=== PATIENT | female | born 1950 | race Caucasian/White ===

== ENCOUNTER 2020-01-17 11:57 | Inpatient (IN) | payer MEDICARE ==
[~2020-01-17] VITALS: Ht 160 cm; Wt 81.7 kg
[~2020-01-17 11:57] MED LIST: Antivert25 MG PO; CEPH500 PO; CYCL10 PO; DIPH50 PO; FLUO10 PO; HYDACE5 PO; LISINOPRIL-? DOSE; MELA3 PO; NAPR500 PO; OXYC10ER PO; OXYC30 PO; Omeprazole20 M1 PO; PARO10 PO; SERT100 PO; SULTRIDS PO; Valium5 MG PO; Zithromax250 MG PO; Zofran Odt4 MG SL
[2020-01-17 13:13] LABS: BASOPHILS ABSOLUTE AUTO 0.04 K/mm3 (0.00-0.23); BASOPHILS PERCENT AUTO 0 % (0-2); EOSINOPHILS PERCENT AUTO 1 % (0-6); Hemoglobin 12.9 g/dL (11.5-16.0); IMMATURE GRAN ABSOLUTE AUTO 0.04 K/mm3 (0.00-0.10); IMMATURE GRAN PERCENT AUTO 0 % (0-1); LYMPHOCYTES ABSOLUTE AUTO 1.86 K/mm3 (0.84-5.20); LYMPHOCYTES PERCENT AUTO 14 % (21-46); MONOCYTES ABSOLUTE AUTO 0.61 K/mm3 (0.16-1.47); MONOCYTES PERCENT AUTO 5 % (4-13); Mean Corpuscular HGB 27.5 pg (26.0-34.0); Mean Corpuscular HGB Conc 32.3 g/dL (31.5-36.5); Mean Corpuscular Volume 85 fL (80-100); NEUTROPHILS ABSOLUTE AUTO 10.79 K/mm3 (1.96-9.15); NEUTROPHILS PERCENT AUTO 80 % (41-73); Platelet Count 334 K/mm3 (150-400); Red Blood Cell Count 4.69 M/mm3 (3.80-5.20); White Blood Cell Count 13.44 K/mm3 (4.00-11.30)
[2020-01-17 13:37] LABS: Alanine Aminotransfer (ALT/SGP 15 U/L (12-78); Albumin/Globulin Ratio 0.6 (0.8-1.8); Alk Phos 123 U/L (50-136); Anion Gap 6 mmol/L (6-16); Aspartate Aminotrans (AST/SGOT 17 U/L (12-37); Bilirubin, Total 0.4 mg/dL (0.1-1.0); Blood Urea Nitrogen 16 mg/dL (8-24); Bun/Creatinine Ratio 19.4 (12.0-20.0); CO2, Blood 27 mmol/L (21-32); Calcium, Blood 9.1 mg/dL (8.5-10.1); Chloride, Blood 106 mmol/L (98-108); Creatinine, Blood 0.83 mg/dL (0.40-1.00); Globulin, Blood 5.3 g/dL (2.2-4.0); Glomerular Filtration Rate >60 (60-); Glucose, Blood 109 mg/dL (70-99); Potassium, Blood 2.8 mmol/L (3.5-5.5); Sodium, Blood 139 mmol/L (136-145); Total Protein, Blood 8.3 g/dL (6.4-8.2)
[2020-01-17] MEDS ORDERED: MORP15ER PO (16:51)
[2020-01-17] MEDS ORDERED: MORP30 (16:51)
[2020-01-17] MEDS ORDERED: MORP30 PO (16:52)
[2020-01-17] MEDS ORDERED: ATORVASTATIN CA20 MG PO (17:57)
[2020-01-17] MEDS ORDERED: MORPHINE SULFAT15 M1 PO (18:06)
--- NOTE | 2020-01-18 04:56 | NUR ---
0456 pt having frequent diarrhea. provider called. pcr ordered for c-diff rule out.
[2020-01-18 05:49] LABS: International Normalized Ratio 1.02; Prothrombin Time Results 10.9 Sec (9.7-11.5)
--- NOTE | 2020-01-18 05:50 | NUR ---
PT ARRIVED TO MEDICAL FLOOR FROM ED WITH ABDOMINAL PAIN 02/21 AND WAS TX PER EMAR. PT REPORTED DECREASED PAIN BUT WAS EXPERIENCING MULTIPLE EPISODES OF LOOSE STOOLS WHICH WAS PREVENTING HER FROM SLEEPING. PROVIDER WAS CONTACTED AND STOOL SAMPLE WAS COLLECTED @0545 AND RESULTS PENDING. PT PLACED ON ISOLATION AND IS RESTING AT EASE IN BED WITH CALL LIGHT IN REACH.
--- NOTE | 2020-01-18 06:13 | NUR ---
SUMMARY PT ARRIVED TO FLOOR IN NO DISTRESS. PT REPORTED ABD PAIN AND HAS BEEN TX PER EMAR W/ RELIEF. PT DENIED ANY N/V. PT HAD FREQUENT BOUTS OF DIARRHEA. PT PLACED IN ISOLATION PENDING C-DIFF R/O. PT CURRENTLY RESTING QUIETLY. CALL LIGHT IN REACH.
[2020-01-18 07:43] LABS: Adenovirus F 40/41 Not Detected (NOT DETECT); Astrovirus Not Detected (NOT DETECT); Campylobacter Sp Not Detected (NOT DETECT); Cryptosporidium Not Detected (NOT DETECT); Cyclospora Cayetanensis Not Detected (NOT DETECT); E. Coli O157 Not Detected (NOT DETECT); Entamoeba Histolytica Not Detected (NOT DETECT); Enteroaggregative E. coli-EAEC Not Detected (NOT DETECT); Enteropathogenic E. coli-EPEC Not Detected (NOT DETECT); Enterotoxigenic E. coli-ETEC Not Detected (NOT DETECT); Giardia Lamblia Not Detected (NOT DETECT); Norovirus GI/GII Not Detected (NOT DETECT); Plesiomonas Shigelloides Not Detected (NOT DETECT); Rotavirus A Not Detected (NOT DETECT); Salmonella Sp Not Detected (NOT DETECT); Sapovirus Not Detected (NOT DETECT); Shiga Toxin-prod E. coli-STEC Not Detected (NOT DETECT); Shigella/Enteroin E. coli-EIEC Not Detected (NOT DETECT); Vibrio Cholerae Not Detected (NOT DETECT); Vibrio Sp Not Detected (NOT DETECT); Yersinia Enterocolitica Not Detected (NOT DETECT)
--- NOTE | 2020-01-18 08:13 | NUR ---
CALLED DR FULLER- PT STILL HAVING FREQUENT STOOLS. C-DIFF PANEL NEGATIVE. REQUESTED IMMODIUM FOR THE PT.
[2020-01-18 08:40] LABS: Anion Gap 5 mmol/L (6-16); Blood Urea Nitrogen 15 mg/dL (8-24); Bun/Creatinine Ratio 19.3 (12.0-20.0); CO2, Blood 26 mmol/L (21-32); Calcium, Blood 8.2 mg/dL (8.5-10.1); Chloride, Blood 109 mmol/L (98-108); Creatinine, Blood 0.78 mg/dL (0.40-1.00); Glomerular Filtration Rate >60 (60-); Glucose, Blood 96 mg/dL (70-99); Potassium, Blood 3.1 mmol/L (3.5-5.5); Sodium, Blood 140 mmol/L (136-145)
--- NOTE | 2020-01-18 13:32 | NUR ---
RECIEVED A CALL FROM DR CONNER, REQUESTED GI BE CONSULTED BEFORE HE SEES THE PT. CALLED DR FULLER- UPDATED HIM. RECIEVED ORDER FOR RN TO NOTIFY GI CONSULT. CALLED DR MOCTEZUMA OFFICE AND WAS TOLD TO CALL HIS CELL. CALLED HIS CELL AND LEFT CONSULT REQUEST WITH HIS PROCEDURE CLUB LOUNGE ATTENDANT (HE IS CURRENTLY IN A PROCEDURE).
--- NOTE | 2020-01-18 14:19 | NUR ---
Initial spiritual care note: Apryl admits to me that she is [place] and had trouble understanding what her physicians have told her. She also says she is fearful. In 2013, she lost 2 of her children and her within 9 months. She is still actively grieving these losses. She lives with her dtr and grandchildren. I provided theraputic listening and gentle breavement cemetery counselor. Prayer for a clear path and God's radha. Apryl has low medical literacy, therefore a calm, understandable explaination of what she is facing will go a long way to allieviate some of her fear. She may also benefit from [facility] allowing her dtr to visit. Conferenced with palliative care RN. Plate Stacker Hand services will remain available.
--- NOTE | 2020-01-18 19:40 | NUR ---
SHIFT SUMMARY- PT ALERT AND ORIENTED, SPOKE TO DR CONNER TODAY, HE REQUESTED GI. DR MOCTEZUMA CAME TO SEE THE PT AND THE PLAN IS FOR HER TO DO BOWEL PREP THIS EVENING AND AGAIN TOMORROW MORNING. DR MOCTEZUMA WANTS TO BE CALLED WHEN THE PT COMPLETES THE SECOND DOSE OF BOWEL PREP. PASSED THE PHONE NUMBER ON TO THE NIGHT GABE MURILLO IN BEDSIDE REPORT. PT WAS MEDICATED FOR PAIN THREE TIMES EACH TIME WAS AROUND MEAL TIME. PT CURRENTLY ON A CLEAR LIQUID DIET. PT INDEPENDENT TO THE BATHROOM, BUT D/T BOWEL PREP SHE WAS ASKED TO USE THE BSC AND CALL FOR STAFF TO EMPTY IT EACH TIME SHE GOES. NIGHT RN AWARE.
--- NOTE | 2020-01-19 04:16 | NUR ---
SUMMARY PT HAD 1900 BOWEL PREP. PT HAS BEEN LIMITED TO WATER AND ICE CHIPS. PT DISCOMFORT BEEN TX PER EMAR. WILL CONTINUE BOWEL PREP IN AM. PT HAS BEEN ABLE TO REST SOME. PT IS ANXIOUS AND EAGER TO GO HOME. CALL LIGHT IN REACH.
[2020-01-19 05:25] LABS: Anion Gap 5 mmol/L (6-16); Blood Urea Nitrogen 8 mg/dL (8-24); Bun/Creatinine Ratio 11.6 (12.0-20.0); CO2, Blood 25 mmol/L (21-32); Chloride, Blood 110 mmol/L (98-108); Creatinine, Blood 0.69 mg/dL (0.40-1.00); Glomerular Filtration Rate >60 (60-); Glucose, Blood 98 mg/dL (70-99); Potassium, Blood 3.3 mmol/L (3.5-5.5); Sodium, Blood 140 mmol/L (136-145)
--- NOTE | 2020-01-19 13:26 | NUR ---
01/19/20 1326 Nikki Valladares History, Chart, Medications and Allergies reviewed before start of procedure.Patient confirms NPO status and agrees with scheduled surgery.LUNGS CLEAR T/O TO AUSCULTATION.Patient states colon prep results clear.MONITOR INTACT WITH CONTINUOUS PULSE OXIMETRY AND INTERMITTENT BP.3-LEAD EKG REVIEWED WITH PHYSICIAN PRIOR TO START OF PROCEDURE.O2 VIA N/C INTACT THROUGHOUT SEDATION/PROCEDURE.
--- NOTE | 2020-01-19 14:43 | NUR ---
PT ARRIVED BACK TO THE UNIT AT 1430. SHE REQUESTED FOOD. PROVIDED A DRINK AND PUDDING PT TOLERATED WELL. REPORT RECIEVED FROM SURGICAL NURSE
[2020-01-19] MEDS ORDERED: MORP15ER PO (15:49)
[2020-01-19] MEDS ORDERED: LOPE2C PO (16:00)
[2020-01-19] MEDS ORDERED: ONDA4ODT PO (16:01)
[2020-01-19] MEDS ORDERED: MIRALAX17 GM PO (16:01)
--- NOTE | 2020-01-19 17:12 | NUR ---
PT DISCHARGED FROM THE UNIT AT 1700, SHE LEFT VIA WHEEL CHAIR, DAUGHTER TO DRIVE HOME. DISCHARGE INSTRUCTIONS REVIEWED. IVS REMOVED. MEDICATIONS FAXED TO [facility]. PT INSTRUCTED ON FOLLOW UP APTS TO BOTH PRIMARY CARE AND ONCOLOGIST.
== END 2020-01-19 17:05 | disposition home or self-care (01) | DRG 375 ==
LOC: ER 11:57 → MEDS 11:58
PROVIDERS: Family Medicine; Internal Medicine; Internal Medicine Gastroenterology; Nurse Practitioner Acute Care; Physician Assistant; ADMIT Internal Medicine
PROC: 0DBK8ZX Excision of Ascending Colon, Via Natural or Artificial Opening Endoscopic, Diagnostic (ICD-10-PCS; principal; 2020-01-19 11:00)
PROC: 0DBL8ZX Excision of Transverse Colon, Via Natural or Artificial Opening Endoscopic, Diagnostic (ICD-10-PCS; 2020-01-19 11:00)
DX: C18.2 Malignant neoplasm of ascending colon (principal); C78.7 Secondary malignant neoplasm of liver and intrahepatic bile duct; C77.2 Secondary and unspecified malignant neoplasm of intra-abdominal lymph nodes; E86.0 Dehydration; M19.90 Unspecified osteoarthritis, unspecified site; G89.4 Chronic pain syndrome; F11.90 Opioid use, unspecified, uncomplicated; E87.6 Hypokalemia; F32.9 Major depressive disorder, single episode, unspecified; R19.7 Diarrhea, unspecified; Z87.891 Personal history of nicotine dependence; I10 Essential (primary) hypertension; K63.5 Polyp of colon
CPT/HCPCS: 0097U; 36415; 74176; 80048; 80053; 83690; 83735; 85025; 85610; 88305; 96365; 96368; 96372; 96375; 96376; 99285-25; A9270; G0378; J1170; J1650; J2405; J2704; J3475; J3480; J7030; J7120

== ENCOUNTER 2020-02-04 08:44 | Day surgery (SDC) | payer MEDICARE ==
[~2020-02-04] VITALS: Ht 157.5 cm; Wt 81.3 kg
[~2020-02-04 08:44] MED LIST changes: +ATORVASTATIN CA20 MG PO; +LOPE2C PO; +MIRALAX17 GM PO; +MORP15ER PO; +MORP30; +MORP30 PO; +MORPHINE SULFAT15 M1 PO; +ONDA4ODT PO
--- NOTE | 2020-02-04 09:15 | NUR ---
Surgical site prepped with 2% Chlorhexidine cloth wipe. History, Chart, Medications and Allergies reviewed before start of procedure.Lungs clear T/O to Auscultation. Patient confirms NPO status and agrees with scheduled surgery. Pre-Op teaching done. Pt verbalizes understanding. Patient States Post-Procedure ride home has been arranged.
--- NOTE | 2020-02-04 13:58 | NUR ---
Patient up to Ambulate independently. Gait steady. Discharge instructions reviewed with patient. Patient verbalizes understanding. Copy given to patient to take home. Discharged via wheelchair to private car for ride home.
== END 2020-02-04 22:37 | disposition home or self-care (01) ==
LOC: ORSCMMR 08:44 → ORD 10:00 → ORSCMMR 10:00
PROVIDERS: Surgery
PROC: B5181ZA Fluoroscopy of Superior Vena Cava using Low Osmolar Contrast, Guidance (ICD-10-PCS; principal; 2020-02-04 10:00)
PROC: 02HV33Z Insertion of Infusion Device into Superior Vena Cava, Percutaneous Approach (ICD-10-PCS; principal; 2020-02-04 10:00)
DX: C18.2 Malignant neoplasm of ascending colon (principal); Z87.891 Personal history of nicotine dependence; E78.00 Pure hypercholesterolemia, unspecified; Z79.899 Other long term (current) drug therapy
CPT/HCPCS: 77001; A9270-GY; C1788; J0690; J1642; J2250; J2704; J3010; J7120

== ENCOUNTER → 2020-05-29 | Outpatient (CLI) | payer OTHER ==
[~2020-05-29] MED LIST changes: +Dyazide 37.5/251 EA PO; +METO10 PO
== END | disposition home or self-care (01) ==
LOC: LAB EV 17:56 → LAB SHORT 17:56
DX: R05 Cough (principal); Z20.828 Contact with and (suspected) exposure to other viral communicable diseases
CPT/HCPCS: U0003

== ENCOUNTER → 2020-05-29 | Outpatient (CLI) | payer OTHER ==
[2020-05-29 18:23] LABS: BASOPHILS ABSOLUTE AUTO 0.03 K/mm3 (0.00-0.23); BASOPHILS PERCENT AUTO 1 % (0-2); EOSINOPHILS ABSOLUTE AUTO 0.16 K/mm3 (0.00-0.68); EOSINOPHILS PERCENT AUTO 3 % (0-6); Hematocrit 39.1 % (33.0-51.0); Hemoglobin 13.3 g/dL (11.5-16.0); IMMATURE GRAN ABSOLUTE AUTO 0.01 K/mm3 (0.00-0.10); IMMATURE GRAN PERCENT AUTO 0 % (0-1); LYMPHOCYTES ABSOLUTE AUTO 2.21 K/mm3 (0.84-5.20); LYMPHOCYTES PERCENT AUTO 38 % (21-46); MONOCYTES ABSOLUTE AUTO 0.74 K/mm3 (0.16-1.47); MONOCYTES PERCENT AUTO 13 % (4-13); Mean Corpuscular HGB 30.1 pg (26.0-34.0); Mean Corpuscular Volume 89 fL (80-100); Mean Platelet Volume 9.9 fL (9.1-12.4); NEUTROPHILS ABSOLUTE AUTO 2.63 K/mm3 (1.96-9.15); NEUTROPHILS PERCENT AUTO 46 % (41-73); Platelet Count 186 K/mm3 (150-400); RDW Coefficient Variation 17.3 % (11.7-14.2); RDW Standard Deviation 54.9 fL (35.1-46.3); Red Blood Cell Count 4.42 M/mm3 (3.80-5.20); White Blood Cell Count 5.78 K/mm3 (4.00-11.30)
[2020-05-29 18:28] LABS: Anion Gap 6 mmol/L (6-16); Blood Urea Nitrogen 12 mg/dL (8-24); Bun/Creatinine Ratio 16.2 (12.0-20.0); CO2, Blood 30 mmol/L (21-32); Calcium, Blood 9.1 mg/dL (8.5-10.1); Chloride, Blood 102 mmol/L (98-108); Creatinine, Blood 0.74 mg/dL (0.40-1.00); Glomerular Filtration Rate >60 (60-); Glucose, Blood 88 mg/dL (70-99); Potassium, Blood 3.1 mmol/L (3.5-5.5); Sodium, Blood 138 mmol/L (136-145)
== END | disposition home or self-care (01) ==
LOC: LAB SHORT 18:15 → LAB EV 18:15
PROVIDERS: Physician Assistant Surgical
DX: J18.9 Pneumonia, unspecified organism (principal)
CPT/HCPCS: 80048; 85025

== ENCOUNTER 2020-08-26 14:22 | Inpatient (IN) | payer MEDICARE ==
[~2020-08-26] VITALS: Ht 157.5 cm; Wt 84.5 kg
[~2020-08-26 14:22] MED LIST changes: -Omeprazole20 M1 PO; +Prilosec Otc20 MG PO
[2020-08-26 14:50] LABS: BASOPHILS ABSOLUTE AUTO 0.05 K/mm3 (0.00-0.23); BASOPHILS PERCENT AUTO 0 % (0-2); EOSINOPHILS PERCENT AUTO 0 % (0-6); Hematocrit 50.5 % (33.0-51.0); Hemoglobin 16.6 g/dL (11.5-16.0); IMMATURE GRAN ABSOLUTE AUTO 0.07 K/mm3 (0.00-0.10); IMMATURE GRAN PERCENT AUTO 0 % (0-1); LYMPHOCYTES ABSOLUTE AUTO 0.63 K/mm3 (0.84-5.20); LYMPHOCYTES PERCENT AUTO 3 % (21-46); MONOCYTES ABSOLUTE AUTO 0.84 K/mm3 (0.16-1.47); MONOCYTES PERCENT AUTO 4 % (4-13); Mean Corpuscular HGB 31.6 pg (26.0-34.0); Mean Corpuscular HGB Conc 32.9 g/dL (31.5-36.5); Mean Corpuscular Volume 96 fL (80-100); Mean Platelet Volume 10.1 fL (9.1-12.4); NEUTROPHILS ABSOLUTE AUTO 18.06 K/mm3 (1.96-9.15); NEUTROPHILS PERCENT AUTO 92 % (41-73); Platelet Count 187 K/mm3 (150-400); RDW Coefficient Variation 13.8 % (11.7-14.2); RDW Standard Deviation 49.3 fL (35.1-46.3); Red Blood Cell Count 5.26 M/mm3 (3.80-5.20); White Blood Cell Count 19.65 K/mm3 (4.00-11.30)
[2020-08-26 15:12] LABS: Alanine Aminotransfer (ALT/SGP 31 U/L (12-78); Albumin, Blood 3.7 g/dL (3.4-5.0); Albumin/Globulin Ratio 0.7 (0.8-1.8); Alk Phos 148 U/L (50-136); Anion Gap 10 mmol/L (6-16); Aspartate Aminotrans (AST/SGOT 29 U/L (12-37); Blood Urea Nitrogen 16 mg/dL (8-24); Bun/Creatinine Ratio 21.4 (12.0-20.0); CO2, Blood 25 mmol/L (21-32); Calcium, Blood 9.7 mg/dL (8.5-10.1); Chloride, Blood 102 mmol/L (98-108); Creatinine, Blood 0.75 mg/dL (0.40-1.00); Globulin, Blood 5.4 g/dL (2.2-4.0); Glomerular Filtration Rate >60 (60-); Glucose, Blood 256 mg/dL (70-99); Potassium, Blood 3.7 mmol/L (3.5-5.5); Sodium, Blood 137 mmol/L (136-145); Total Protein, Blood 9.1 g/dL (6.4-8.2)
[2020-08-26] MEDS ORDERED: CYCL10 PO (20:55)
[2020-08-26] MEDS ORDERED: AMLO10 PO (20:56)
[2020-08-26 23:05] LABS: Influenza A, PCR Negative (NEGATIVE); Influenza B, PCR Negative (NEGATIVE); Resp Syncytial Virus, PCR Negative (NEGATIVE); SARS-Cov-2 (COVID-19) PCR, MMC Negative (NEGATIVE)
--- NOTE | 2020-08-26 23:54 | NUR ---
08/26/20 0884 Willis Roque PT RECIEVED ANTIBIOTICS PRIOR TO ARRIVAL TO OR DR TANG CONFIRMED
--- NOTE | 2020-08-27 01:46 | NUR ---
PATIENT ARRIVED TO ICU AT 0135 FROM OR FOR POST OP AND STAY ICU STATUS TONIGHT. PATIENT HAS ORAL AIRWAY IN PLACE WITH NRB MASK IN PLACE RESP WITH AUDIBLE WHEEZES BIOX 99%. DRESSING TO MID ABD WITH GASTON WOUND VAC IN PLACE. DOCTOR TANG UNABLE TO LOCATE GRANDDAUGHTER AT THIS TIME. DOCTOR MARTINEZ FOR PACU.
[2020-08-27 01:53] LABS: Hematocrit 46.3 % (33.0-51.0); Hemoglobin 15.2 g/dL (11.5-16.0); Mean Corpuscular HGB Conc 32.8 g/dL (31.5-36.5); Mean Corpuscular Volume 98 fL (80-100); Mean Platelet Volume 10.5 fL (9.1-12.4); Platelet Count 148 K/mm3 (150-400); RDW Coefficient Variation 13.7 % (11.7-14.2); RDW Standard Deviation 50.3 fL (35.1-46.3); Red Blood Cell Count 4.75 M/mm3 (3.80-5.20)
[2020-08-27 02:08] LABS: Anion Gap 9 mmol/L (6-16); Blood Urea Nitrogen 21 mg/dL (8-24); Bun/Creatinine Ratio 23.9 (12.0-20.0); CO2, Blood 24 mmol/L (21-32); Calcium, Blood 8.6 mg/dL (8.5-10.1); Chloride, Blood 103 mmol/L (98-108); Creatinine, Blood 0.88 mg/dL (0.40-1.00); Glomerular Filtration Rate >60 (60-); Glucose, Blood 162 mg/dL (70-99); Potassium, Blood 3.8 mmol/L (3.5-5.5); Sodium, Blood 136 mmol/L (136-145)
[2020-08-27 02:43] LABS: Source, Urine Voided
[2020-08-27 02:45] LABS: Bilirubin, Urine Neg (Neg); Blood, Urine 3+ (Neg); Glucose Qualitative, Urine 2+ (Neg); Ketones, Urine Neg (Neg); Leukocyte Esterase, Urine 1+ (Neg); Nitrite, Urine Neg (Neg); Protein, Urine 3+ (Neg); Specific Gravity, Urine 1.005 (1.003-1.022); Urobilinogen, Urine NORM (Normal)
[2020-08-27 02:50] LABS: Appearance, Urine Clear (Clear); Color, Urine Amber (P-Yellow)
[2020-08-27 02:51] LABS: Amorphous Light (0-Heavy); Bacteria Few /hpf; Hyaline Casts 0-2 /lpf (0-2); Squamous Epithelial Cells Not Seen /hpf (Few)
--- NOTE | 2020-08-27 06:00 | NUR ---
SUMMARY PATIENT IN ICU POST COLECTOMY. GASTON DRAIN TO MID ABD WITH SMALL AMT OF RED DRAINAGE TO MIDDLE OF DRAIN DRESSING REMANS INTACT WITH GOOD SUCTION. PATIENT MORE AWAKE ABLE TO ASSIST WITH REPOSITIONING IN BED WHILE HOLDING PILLOW TO ABD FOR SUPPORT. OXYGEN AT 2L/NC DUE TO BIOX 89-90% WHILE SLEEPING. AD OPERATIONS INTERN FENTANYL NOT STARTED DUE TO PATIENT BEING LETHARGIC AND VERBALIZING GOOD PAIN CONTROL AT THIS TIME. DILAUDID IV AVAILABLE IF NEEDED. WILL CONTINUE TO MONITOR FOR PAIN.
--- NOTE | 2020-08-27 11:15 | NUR ---
AM NOTE... ASSUMED CARE OF PT APROX 0700. PT IS A&Ox4 AND SLEEPY. PT IS S/P PARTIAL COLECTOMY. PT IS NPO POST PROCEDURE. PT HAS LR RUNNING AT 150MLS/HR. PT HAS PICCO DRAIN TO THE MIDLINE OF HER ABD, THERE IS A SMALL AMOUNT OF DRY BLOOD TO THE CENTER OF THE DRESSING THAT HAS NOT CHANGED SINCE ARRIVAL ON THE UNIT PER NOC SHIFT RN. BT ARE PRESENT AND HYPOACTIVE THE RIGHT SIDE OF HER ABD IS FRIM AND VERY TENDER TO PALP, THE LEFT SIDE IS SOFT AND NOT FIRM THE RIGHT. NO EDEMA IS NOTED ON ASSESSMENT. PT IS ON RA WITH O2 SATS>90% L/S CLEAR T/O DIM IN THE BASES. PT IS C/O OF 8/10 ABD PAIN SHE HAS BEEN MEDICATED PER EMAR, FENTANYL NAVY MATERIAL INSPECTOR WAS SET UP AND STARTED WITH MARK BERNAL. PT IS TO TRANSFER TO SURGICAL FLOOR, REPORT TO BE CALLED AND PT WILL BE TRANSFERRED. WILL CONTINUE TO MONITOR UNTIL TRANSFER.
--- NOTE | 2020-08-27 11:30 | NUR ---
PT UPDATE... PT'S SYSTOLIC BP HAS BEEN IN THE 160'S-170'S, DR. MAC AWARE. CALLED TO GIVE REPORT TO SURGICAL NURSE, WAITING FOR A CALL BACK. WILL CONTINUE TO MONITOR.
--- NOTE | 2020-08-27 13:30 | NUR ---
1200- recvd report from SPORTS LEADERSHIP INSTRUCTOR Tanisha; arranged transport to unit for 1315 per ICU scheduling needs 1325-pt transferred to room, a/o x 4, pleasant, rates pain at 6/10, instructed to utilize FLOOR ATTENDANT which pt did. VSS, pt oriented to room/bed/call light, provided with mouth moisteners.
--- NOTE | 2020-08-27 15:40 | NUR ---
dr ram rounding on pt
--- NOTE | 2020-08-27 17:30 | NUR ---
pt's daughter visiting; this rn updated daughter on pt's condition and answers questions.
--- NOTE | 2020-08-27 17:57 | NUR ---
Spiritual care note: Andreia was very sleepy, but she nodded 'yes' to prayer. Provided prayer for healing, and I will remain available.
--- NOTE | 2020-08-27 19:06 | NUR ---
shift summary: pt vs stable. telemetry shows sinus tachycardia. pt provided with IV lopressor per mar due to hr of 124 and SBP 180. VS taken following administraion showing hr 100 and SBP 130-140's. pt tolerating clear liquid. BT hypoactive. pt provided with analgesia per mar of sublimaze LOT PORTER and additional IV push of Dilaudid. SPo2 >95% on room air. GASTON midline dressing intact, shows dried blood shadowing, no new blood.
--- NOTE | 2020-08-28 03:19 | NUR ---
SHIFT SUMMARY: POD 2 S/P RIGHT COLECTOMY PATIENT IS ALERT AND ORIENTED X3 WHILE AWAKE. HE CAN BECOME ANXIOUS/IMPULSIVE AND CONFUSED AT TIMES. BED ALARM IS ON. HOWEVER, PATIENT HAS BEEN ASLEEP MOST OF THE NIGHT BUT EASILY AROUSABLE. VITALS ARE WNL AND SHE IS ON RA. PAIN IS CONTROLLED WITH HER IV FENTANYL CYBERATHLETE PUMP AND PO OXYCOTIN. PATIENT IS ON TELE AND WAS SINUS TACH PATIENT IS JOSE ARMANDO PO CLEAR LIQUID. BOWELS ARE HYPOACTIVE. OXYGEN SATS ARE >90%. GASTON HAS SMALL AMOUNT OF DRIED BLOOD ON IT BUT FOAM IS COMPRESSED. CALL LIGHT WITHIN REACH. THE PLAN IS TO KEEP PAIN UNDER CONTROL AND KEEP RECIEVING ABX/FLUIDS.
[2020-08-28 04:26] LABS: BASOPHILS ABSOLUTE AUTO 0.07 K/mm3 (0.00-0.23); BASOPHILS PERCENT AUTO 0 % (0-2); Hemoglobin 9.2 g/dL (11.5-16.0); LYMPHOCYTES PERCENT AUTO 8 % (21-46); MONOCYTES ABSOLUTE AUTO 1.57 K/mm3 (0.16-1.47); MONOCYTES PERCENT AUTO 5 % (4-13); Mean Corpuscular HGB 32.2 pg (26.0-34.0); Mean Corpuscular HGB Conc 32.9 g/dL (31.5-36.5); Mean Corpuscular Volume 98 fL (80-100); Mean Platelet Volume 10.8 fL (9.1-12.4); Platelet Count 209 K/mm3 (150-400); RDW Coefficient Variation 14.2 % (11.7-14.2); RDW Standard Deviation 51.1 fL (35.1-46.3); Red Blood Cell Count 2.86 M/mm3 (3.80-5.20); White Blood Cell Count 29.04 K/mm3 (4.00-11.30)
[2020-08-28 04:29] LABS: EOSINOPHILS PERCENT AUTO 0 % (0-6); IMMATURE GRAN ABSOLUTE AUTO 0.31 K/mm3 (0.00-0.10); IMMATURE GRAN PERCENT AUTO 1 % (0-1); NEUTROPHILS ABSOLUTE AUTO 24.79 K/mm3 (1.96-9.15); NEUTROPHILS PERCENT AUTO 85 % (41-73)
[2020-08-28 04:55] LABS: Albumin/Globulin Ratio 0.5 (0.8-1.8); Bilirubin, Total 0.8 mg/dL (0.1-1.0); Bun/Creatinine Ratio 26.4 (12.0-20.0); Calcium, Blood 8.1 mg/dL (8.5-10.1); Creatinine, Blood 1.06 mg/dL (0.40-1.00); Globulin, Blood 3.7 g/dL (2.2-4.0); Potassium, Blood 4.1 mmol/L (3.5-5.5)
[2020-08-28 04:56] LABS: Total Protein, Blood 5.7 g/dL (6.4-8.2)
--- NOTE | 2020-08-28 05:06 | NUR ---
CALLED DR. FULLER FOR A CRITICAL LAB VALUE OF LACTIC ACID AT 2.6. DR. FULLER STATED THAT HER FLUID RATE SHOULD BE INCREASED TO 135 CC/HR. THEN CARDIAC CARE UNIT NURSE REPORTED TO ME WHILE ON THE PHONE WITH DR. FULLER THAT SHE HAS SOME BRIGHT RED BLOOD THAT CAME OUT ONTO FINNEGAN AND BEDPAN. THIS NURSE ALSO REPORTED TO DR. FULLER THAT HER HEMOGLOBIN HAS DECREASED FROM [address] FULLER THEN STATED THAT HE WOULD BE ORDERING BLOOD FOR THE PATIENT AND THAT SHE SHOULD BE TRANSFERRED TO PCU. CHARGEN NURSE BLACK WAS INFORMED OF THE SITUATION. NURSE BLACK REPORTED TO NURSING SUPERVISIOR ABOUT TRANSFER. NURSING SUPERVISIOR ROCKY IS RETRIEVING A BED FOR THE PATIENT. PATIENT HAS CALL LIGHT WITHIN REACH.
--- NOTE | 2020-08-28 05:56 | NUR ---
GAVE REPORT TO ICU NURSE ARIANA AT 0530 TODAY 08/28/2020. PATIENT HAS BEEN ALERT AND ORIENTATED X4 THIS MORNING. BP VITALS HAVE BEEN STEADILY DECREASING. FLUIDS HAVE BEEN INCREASED TO 135 CC/HR. HER HR HAS BEEN STEADILY BETWEEN 105-120 ACCORDING TO PCU RESIDENTIAL LIFE DIRECTOR GIL. PAIN IS CONTROLLED WITH FENTANYL MOLDER FEEDER PUMP. HER KERN WAS PATENT WITH GEETA COLOR URINE IN KERN BAG. NO KINKS IN TUBING. PATIENT IS PCU STATUS BUT PCU HAD NO BEDS AVAILABLE SO SHE WAS TRANSFERRED TO ICU. SHE IS ON BEDREST. STOPPED GIVING HER PO CLEAR LIQUIDS SINCE THE CALL WITH DR. FULLER AT 0450 TODAY. SEE PREVIOUS NOTE FOR MORE DETAILS ON WHY SHE WAS TRANSFERRED. ITEMS IN ROOM HAVE BEEN COLLECTED AND PLACED ON HER BED. SHE WAS TRANSFERRED TO ICU AT 0545 IN BED. IV POLE WITH MOLDER FEEDER AND FLUIDS WENT WITH THE BED.
--- NOTE | 2020-08-28 06:38 | NUR ---
ARRIVED TO ICU 2 PT ARRIVED TO ICU AT 0541. PT IS ALERT AND ORIENTED BUT DROWSY. PT PALE AND COOL TO TOUCH. O2 SAT ON RA >90%. BP 103/71. HR 110-120. AFIBRILE. KERN IN PLACE AND DRAINING TO GRAVITY. FENTANYL ELECTRONIC EQUIPMENT SET UP OPERATOR INFUSING. ORDER FOR 1 UNIT PRB STARTED. PT LUNG SOUNDS CLEAR. ABD BANDAGE SHOWS SIGNS OF DRIED BLOOD, PREVIOUS RN SAID THIS WAS NOT NEW. WILL CONT TO MONITOR UNTIL AM RN AVAILABLE FOR REPORT.
[2020-08-28 10:55] LABS: Hematocrit 29.6 % (33.0-51.0)
--- NOTE | 2020-08-28 10:58 | NUR ---
ASSUMED CARE OF PT, REPORT RCV'D FROM ARIANA Arevalo RN. PT ALERT AND ORIENTED SITTING UP IN BED RECEIVING 1U PRBC. PT REPORTS ABDOMINAL PAIN THAT WORSENS WITH MOVEMENT. PT STATES PAIN IS MUCH BETTER FROM THIS MORNING. FENTANYL FISHING TOOL TECHNICIAN OIL WELL INFUSING INTO LARA PG AT 15 MCG CONTINUOUS DOSE WITH 10 MCG FISHING TOOL TECHNICIAN OIL WELL DOSE. PT RECEIVING 500 ML NS BOLUS FOLLOWED BY 150 ML NS MAINTENANCE FLUIDS PER DR. MAC. PT'S VSS AT THIS TIME AND PT DENIES NEEDS. BED IN LOW/LOCKED POSITION, CALL LIGHT IN HAND. SEE FULL SHIFT ASSESSMENT.
--- NOTE | 2020-08-28 15:44 | NUR ---
PT TO BE TRANSFERRED TO PCU 13. CALLED DAUGHTER SALIMA AND UPDATED WITH NEW ROOM.
--- NOTE | 2020-08-28 16:29 | NUR ---
ASSUMED CARE FROM ICU PT ARRIVED TO PCU FROM ICU AT APPROXIMATELY 1600. PT WAS PAINFUL AT ARRIVAL BUT STATES THAT AFTER USING HER GRAPE CRUSHER WITH FENTNYL HER PAIN BECAME TOLERABLE. VS STABLE, LUNGS BUL CLEAR, RML CLEAR, BLL DIM. PT ARRIVED ON 2L OF O2 VIA NC. GASTON DRESSING IN PLACE; MINOR AMOUNTS OF DRIED RED BLOOD AT THE CENTER OF THE DRESSING. PT HAS NS RUNNING AT 150ML/HR AND REPORTS DECREASED APPETITE. PT RESTING AT THIS TIME
--- NOTE | 2020-08-28 18:07 | NUR ---
SHIFT SUMMARY PT ARRIVED TO PCU THIS AFTERNOON. PT HAS BEEN RESTING IN HER ROOM SINCE ARRIVAL. VS STABLE. PAIN MANAGED WITH NDT INSPECTOR. PT DID REPORT NAUSEA AFTER ARRIVAL AND RECEIVED ZOFRAN. PT HAS SPENT HER EVENING VISITING WITH HER GRANDDAUGHTER. PT IS NOW RESTING IN HER ROOM WATCHING TV
--- NOTE | 2020-08-29 06:08 | NUR ---
SHIFT SUMMARY PATIENT ALERT AND ORIENTED. REPOSITIONED Q2 HOURS. PATIENT SLEPT MOST THE NIGHT. PT ON DOT NET DEVELOPER PUMP, PT STATED SHE WAS NOT FEELING LIKE SHE NEEDED TO PRESS THE BUTTON AND WAS COMFORTABLE MOST THE NIGHT. 02 SATS >94% ON 2L VIA NC. VSS, NO ACUTE CHANGES. CALL LIGHT IN REACH.
--- NOTE | 2020-08-29 07:49 | NUR ---
pt sleepy this am, wakes easily, reports she slept well last night, and is not complaining of pain this am, lungs are clear dim in bases, resp even and unlabored, on 3 liters at this time, no cough noted, hrr, tele in place running st per monitor at 110bpm at this time, no edema noted, ppp+1, cap refill <3sec, vs stable, afebrile, iv site is clear and patent, infusing ns and cloth examiner hand pump, btx3 hypoactive, leung cath draining clear yellow urine, skin has midline abd incision, dressing has a small amount of old drainage, nikkie self, call light in reach.
[2020-08-29 09:05] LABS: BASOPHILS ABSOLUTE AUTO 0.02 K/mm3 (0.00-0.23); BASOPHILS PERCENT AUTO 0 % (0-2); EOSINOPHILS ABSOLUTE AUTO 0.03 K/mm3 (0.00-0.68); EOSINOPHILS PERCENT AUTO 0 % (0-6); Hemoglobin 6.9 g/dL (11.5-16.0); IMMATURE GRAN ABSOLUTE AUTO 0.07 K/mm3 (0.00-0.10); IMMATURE GRAN PERCENT AUTO 0 % (0-1); LYMPHOCYTES ABSOLUTE AUTO 1.37 K/mm3 (0.84-5.20); LYMPHOCYTES PERCENT AUTO 9 % (21-46); MONOCYTES ABSOLUTE AUTO 0.97 K/mm3 (0.16-1.47); MONOCYTES PERCENT AUTO 6 % (4-13); Mean Corpuscular HGB 30.9 pg (26.0-34.0); Mean Corpuscular HGB Conc 32.9 g/dL (31.5-36.5); Mean Corpuscular Volume 94 fL (80-100); Mean Platelet Volume 10.3 fL (9.1-12.4); NEUTROPHILS ABSOLUTE AUTO 13.73 K/mm3 (1.96-9.15); NEUTROPHILS PERCENT AUTO 85 % (41-73); Platelet Count 119 K/mm3 (150-400); RDW Coefficient Variation 17.5 % (11.7-14.2); RDW Standard Deviation 60.3 fL (35.1-46.3); Red Blood Cell Count 2.23 M/mm3 (3.80-5.20); White Blood Cell Count 16.19 K/mm3 (4.00-11.30)
[2020-08-29 09:22] LABS: Albumin, Blood 1.9 g/dL (3.4-5.0); Anion Gap 6 mmol/L (6-16); Blood Urea Nitrogen 16 mg/dL (8-24); Bun/Creatinine Ratio 21.9 (12.0-20.0); CO2, Blood 26 mmol/L (21-32); Calcium, Blood 7.9 mg/dL (8.5-10.1); Chloride, Blood 108 mmol/L (98-108); Creatinine, Blood 0.73 mg/dL (0.40-1.00); Glomerular Filtration Rate >60 (60-); Glucose, Blood 79 mg/dL (70-99); Phosphorus, Blood 2.5 mg/dL (2.5-4.9); Potassium, Blood 3.9 mmol/L (3.5-5.5); Sodium, Blood 140 mmol/L (136-145)
--- NOTE | 2020-08-29 11:06 | NUR ---
pt b/p continues to be high, turned off her fluids as ordered this am, gave her 5mg metoprolol, pt very sleepy still, wakes up easily but is drowsy and returns to sleep as soon as she is left alone. Dr. Hummel in to see her. call light in reach.
--- NOTE | 2020-08-29 14:45 | NUR ---
STARTED A UNIT OF PRBC, PT VERY SLEEPY, HEALTH MANAGER WAS STOPPED, ORAL MORPHINE GIVE SHE RATES PAIN 5/10, GOT HER UP TO CHAIR FOR ABOUT A HALF HR, HER LINEN WAS CHANGED AT THAT TIME, GAVE HER A BATHBLANKET TO SPLINT HER ABD WHILE MOVING, SHE DID WELL, AND FELT GOOD TO GET A BREAK FROM THE BED, SHE ALSO HAD A BED BATH, I.S. GIVEN TO HER AND INSTRUCTED HOW TO USE, SHE IS USING IT ON HER OWN, CALL LIGHT IN REACH.
--- NOTE | 2020-08-29 18:37 | NUR ---
pt just finishing prbc, she recieved on dose of dilaudid for abd pain, then had a very large soft dark mauroon stool, looked like blood clots, notified Dr. Mujica, he said to continue to watch her, pt abd feels some better after bm. b/p continues to be high, metoprolol and lasix given this evening. call light in reach.
--- NOTE | 2020-08-29 21:58 | NUR ---
ASSUMED CARE OF PATIENT AT APPROXIMATELY 1910 FROM CRISTHIAN Arevalo RN. PATIENT ALERT AND ORIENTED TO SELF, LOCATION AND EVENT. PATIENT UNABLE TO STATE DATE OR YEAR. PATIENT DROWSY AT TIMES. PATIENT REPORTS PAIN IN ABDOMEN FROM SURGERY; MEDICATED PER EMAR. PATIENT ASSISTS WITH TURNS. SR ON TELE; OXYGEN SATURATION ABOVE 90% ON 3LPM VIA NC. PG LARA NUNEZ. URINARY CATH DRAINING CLEAR URINE. NO BM THIS SHIFT. DRESSING ON ABDOMEN HAS OLD DRAINAGE; DRAIN IN PLACE. SCDS IN PLACE. PATIENT CURRENTLY RESTING IN BED; CALL LIGHT IN REACH; BED IN LOWEST POSISTION; BED ALARM ON.
[2020-08-30 05:48] LABS: Hematocrit 24.6 % (33.0-51.0); Mean Corpuscular HGB 29.9 pg (26.0-34.0); Mean Corpuscular HGB Conc 32.5 g/dL (31.5-36.5); Mean Corpuscular Volume 92 fL (80-100); Mean Platelet Volume 10.3 fL (9.1-12.4); Platelet Count 128 K/mm3 (150-400); RDW Coefficient Variation 18.3 % (11.7-14.2); RDW Standard Deviation 61.7 fL (35.1-46.3); Red Blood Cell Count 2.68 M/mm3 (3.80-5.20); White Blood Cell Count 10.87 K/mm3 (4.00-11.30)
[2020-08-30 06:01] LABS: Albumin, Blood 2.1 g/dL (3.4-5.0); Anion Gap 6 mmol/L (6-16); Blood Urea Nitrogen 10 mg/dL (8-24); Bun/Creatinine Ratio 15.3 (12.0-20.0); CO2, Blood 30 mmol/L (21-32); Calcium, Blood 8.2 mg/dL (8.5-10.1); Chloride, Blood 104 mmol/L (98-108); Creatinine, Blood 0.65 mg/dL (0.40-1.00); Glomerular Filtration Rate >60 (60-); Glucose, Blood 75 mg/dL (70-99); Phosphorus, Blood 2.4 mg/dL (2.5-4.9); Potassium, Blood 3.6 mmol/L (3.5-5.5); Sodium, Blood 140 mmol/L (136-145)
--- NOTE | 2020-08-30 06:27 | NUR ---
PATIENT SLEPT MOST OF SHIFT; MORE ALERT THIS MORNING; REPORTS SHE FEELS LIKE SHE SLEPT WELL LAST NIGHT. HEMOGLOBIN 8. VSS. NO ACUTE CHANGES TO REPORT.
--- NOTE | 2020-08-30 11:25 | NUR ---
PT LAYING IN BED WITH EYES CLOSED, WAKES EASILY, STATES SHE HAD A GOOD NIGHT, AND IS DOING OK THIS AM, SLEEPY, BUT NOT LIKE YESTERDAY, LUNGS ARE CLEAR, DIM IN BASES, RESP EVEN AND UNLABORED, NO COUGH NOTED, ON 1 LITER O2 VIA N/C, SATS ABOVE 90%, HRR, TELE IN PLACE RUNNING SR TO ST PER MONITOR, SEE STRIP, NO EDMA NOTED, PPP+1, CAP REFILL <3SEC, VS STABLE, AFEBRILE, IV SITE IS CLEAR AND PATENT, BTX3, ABD SOFT, TENDER WITH PALP, KERN CATH DRAINING CLEAR YELLOW URINE, SKIN HAS MIDLINE INCISION WITH PICA DRAIN, BRODIE HERNANDEZ, CALL LIGHT IN REACH.
--- NOTE | 2020-08-30 13:20 | NUR ---
pt resting in bed, states her pain is doing ok, ate about 50% of lunch, did have a small black stool this am, that was kenon, call light in reach.
--- NOTE | 2020-08-30 17:54 | NUR ---
PT DAUGHTER CAME IN AND WASHED HER UP, AND GOT HER UP TO A CHAIR, PT STATES SHE COULDN'T TOLERATE BEING UP BUT A FEW MINUTES, BECAUSE OF ABD PAIN, EDUCATED HER AND DAUGHTER NEXT TIME SHE IS TO GET OOB LET THE NURSE KNOW SO SHE CAN BE MEDICATED FIRST. PT STILL IN PAIN, GAVE HER 25MCG FENTANYL WITH GOOD RELIEF, STATES SHE FEELS MUCH BETTER. CALL LIGHT IN REACH.
--- NOTE | 2020-08-30 22:21 | NUR ---
ASSUMED CARE OF PATIENT AT APPROXIMATELY 1915 FROM CRISTHIAN Arevalo RN. PATIENT ALERT AND ORIENTED TO SELF, LOCATION AND EVENT. PATIENT UNABLE TO STATE DATE OR YEAR. PATIENT DROWSY AT TIMES. PATIENT REPORTS PAIN IN ABDOMEN FROM SURGERY; MEDICATED PER EMAR. PATIENT ASSISTS WITH TURNS. SR ON TELE; OXYGEN SATURATION ABOVE 90% ON 2LPM VIA NC. PG LARA NUNEZ. URINARY CATH DRAINING CLEAR URINE. NO BM THIS SHIFT. DRESSING ON ABDOMEN HAS OLD DRAINAGE; DRAIN IN PLACE. SCDS IN PLACE. PATIENT CURRENTLY RESTING IN BED; CALL LIGHT IN REACH; BED IN LOWEST POSISTION; BED ALARM ON.
--- NOTE | 2020-08-31 00:18 | NUR ---
HOME MORPHINE PILL. PCT FOUND LIGHT BLUE ROUND PILL WITH M ON THE FRONT; THIS RN ATTEMPTED TO PUT IN THE SHARPS BECAUSE THE PILL WAS ON THE FLOOR; PATIENT REPORTS THAT IT IS HER PILL AND SHE WOULD LIKE TO SEE IT; PATIENT TAKES PILL AND REPORTS IT IS HER HOME MOPRPHINE PILL THAT SHE HAD TAKEN OUT FROM HER PURSE EARLIER TODAY AND WAS GOING TO TAKE BECAUSE SHE COULDNT REACH HER CALL LIGHT TO CALL FOR PAIN MEDICATION AND DROPPED THE PILL ON THE GROUND THAT WAS IN A PILL BOTTLE IN HER PURSE. PATIENT WOULD NOT LET STAFF HAVE PILL BACK AND REFUSED STAFF TO SEND PILLS UP TO [facility] FOR SAFE KEEPING. PATIENT EDUCATED ON NOT TAKING HOME MEDICATIONS AND REPORTS "I HAVENT TAKEN ONE SINCE I HAVE BEEN ADMITTED". PATIENT REPORTS SHE WILL SEND HER PILLS HOME WITH HER DAUGHTER TOMORROW AND WILL NOT LET STAFF SEND PILLS TO PHARMACY.
[2020-08-31 04:05] LABS: Hematocrit 24.9 % (33.0-51.0); Hemoglobin 8.1 g/dL (11.5-16.0); Mean Corpuscular HGB Conc 32.5 g/dL (31.5-36.5); Mean Corpuscular Volume 92 fL (80-100); Mean Platelet Volume 9.9 fL (9.1-12.4); Platelet Count 125 K/mm3 (150-400); RDW Coefficient Variation 16.9 % (11.7-14.2); RDW Standard Deviation 56.6 fL (35.1-46.3); White Blood Cell Count 10.89 K/mm3 (4.00-11.30)
--- NOTE | 2020-08-31 14:21 | NUR ---
PT KNOWN TO HAVE HER HOME MS CONTIN RX AT BEDSIDE. PT IS REQUESTING PAIN MEDICATIONS AT THIS TIME. THIS RN DISCUSSED WITH PT THE IMPORTANCE OF THE RN TO BE ABLE TO MONITOR MEDICATION ADMINISTRATION FOR HER SAFETY. PT AGREED TO GIVE THIS RN HER BOTTLE OF MS CONTIN TO LOCK UP UNTIL HER FAMILY MEMBER COMES TO VISIT TODAY AND SHE CAN TAKE IT HOME.
--- NOTE | 2020-08-31 15:25 | NUR ---
PT TRANSFERED TO RM 229, BEDSIDE REPORT GIVEN TO GABE OBRIEN. PT'S GRAND DTR AT BEDSIDE AND HAS TAKEN POSESSION OF PT'S MS CONTIN.
--- NOTE | 2020-08-31 17:57 | NUR ---
SHIFT SUMMARY PT TRANSFERRED FROM PCU AT 1500, STAND PIVOT TO BSC AND CHAIR; UP TO CHAIR THRU DINNER. TCDB & I.S. EDU & ENC. JOSE ARMANDO PO, DENIES N&V. DENIES PAIN AT THIS TIME. VOIDING WELL; LIQUID BMS WITH BLOOD. A&OX4. VSS. DISCUSSED PLAN WITH PT TO GET OOB AND SIT IN CHAIR IN THE AM FOR BREAKFAST, STAY UP TO CHAIR FOR ENTIRE DAY, WALKING TO [facility], PARTICIPATING WITH PHYSICAL THERAPY AND DOING PT EXERCISES TO BECOME STRONGER. PT AND GRANDDAUGHTER BOTH VOICED DESIRE FOR PT TO GO HOME, AND NOT TO SNF. WILL REPORT TO LENNY MELGAR RN.
[2020-09-01 05:27] LABS: Hematocrit 28.2 % (33.0-51.0); Hemoglobin 9.1 g/dL (11.5-16.0)
[2020-09-01 05:54] LABS: Albumin, Blood 2.1 g/dL (3.4-5.0); Anion Gap 7 mmol/L (6-16); Blood Urea Nitrogen 7 mg/dL (8-24); Bun/Creatinine Ratio 13.6 (12.0-20.0); CO2, Blood 29 mmol/L (21-32); Calcium, Blood 8.6 mg/dL (8.5-10.1); Chloride, Blood 100 mmol/L (98-108); Creatinine, Blood 0.52 mg/dL (0.40-1.00); Glomerular Filtration Rate >60 (60-); Glucose, Blood 101 mg/dL (70-99); Phosphorus, Blood 3.3 mg/dL (2.5-4.9); Potassium, Blood 3.3 mmol/L (3.5-5.5); Sodium, Blood 136 mmol/L (136-145)
--- NOTE | 2020-09-01 06:15 | NUR ---
SHIFT SUMMARY: MICHELLE IS A&O WITH SOME INTERMITTENT MILD CONFUSION NOTED. VSS, NO ACUTE EVENTS OVERNIGHT. POWERGLIDE TO LARA WARD, UNABLE TO DRAW LABS. SHE IS TOLERATING FULL LIQUID DIET WELL. SHE IS A ONE PERSON ASSIST TO THE BEDSIDE COMMODE. SHE REPORTED THAT SHE HAS BEEN DIAGNOSED WITH TRACIE AND USED TO USE A CPAP, BUT HAS NOT HAD ONE LATELY. SHE REQUESTED A CPAP BE PROVIDED, ON-CALL PHYSICIAN NOTIFIED AND ORDER OBTAINED. RT KINDLY BROUGHT AND MANAGED CPAP, UNFORTUNATELY PT UNABLE TO TOLERATE. SHE IS MAINTAINING HER SATS >90% ON 2 L VIA NC, CONTINUOUS BIOX IN PLACE. ATTENDS IN PLACE. PT REPORTS THAT SHE HAS BEEN HAVING BLOOD STREAKED STOOL, ONE SUCH EPISODE THIS SHIFT. SHE IS LYING IN BED WITH HER CALL LIGHT IN REACH. WILL REPORT TO DAY SHIFT RN.
--- NOTE | 2020-09-01 17:37 | NUR ---
SUMMARY: PT POD6 R WILFRED COLECTOMY. NO ACUTE CHANGE TODAY, VSS, A/O. SURGICAL SITE WNL. OXYCOTIN SEEMS TO BE MANAGING PAIN WELL. PT MOVING WELL, UP TODAY AND WALKING IN HALLS, FWW AND SBA. TOLERATING FULL LIQ DIET, NO NAUSEA. PLAN IS FOR DC POSSIBLY TOMORROW. WILL CTM AND REPORT TO TALIA RN
--- NOTE | 2020-09-02 06:38 | NUR ---
SHIFT SUMMARY POD7 R WILFRED COLECTOMY, A/O X4, VSS, TOLERATING PO, PT SLEPT THROUGH MOST OF SHIFT, UP ONCE FOR BM, ONLY ASKED FOR PAIN MEDICATION ONE TIME, MEDICATED PER EMAR, USES CALL LIGHT APPROPRIATELY. CALL LIGHT IN REACH, WILL CONTINUE TO MONITOR AND REPORT TO ONCOMING DAY RN.
--- NOTE | 2020-09-02 14:19 | NUR ---
Pt resting in bed upon arrival arrival. Pt reports 4/10 pain. Pt reports pain tends to intensify later in the day. Pt reports working well with therapy today. Engaged in therapeutic listening as Pt discusses recent loss of her , step son, and daughtera. Validated concerns and continued therapeutic listening. Pt reports she was living with her daughter but plans to live with her granddaughter. Pt reports not enough space living with her daughter. Discussed the importance of considering completing an advanced directive. Pt expresses interest in learning more. Educated on each section to complete and educated on life sustaining measures. Pt reports plan to take home with her and complete with her granddaughter. Pt denies need for volunteer to call her at home for assistance with AD. Provided Palliative Care contact information and instructed to call with any questions or concerns. Palliative Care will remain available.
--- NOTE | 2020-09-02 17:50 | NUR ---
SUMMARY: PT IS POD7 WILFRED COLECTOMY. HTN NOTED AND DR. JIMENEZ MADE AWARE SEE NEW ORDERS OTHERWISE VSS, A/O. NO ACUTE CHANGE TODAY. GASTON DRESSING REMOVED AND MEDIPORE DRESSING PLACED, SMALL AMT OF SS DRAINAGE. PT TOLERATING REG DIET.NO N/V. MOVING WELL WITH PHYSCIAL THERAPY. PLAN IS DC WITH HH TOMORROW. NO SAFETY CONCERNS.
--- NOTE | 2020-09-03 05:22 | NUR ---
SHIFT SUMMARY POD 8 R WILFRED COLECTOMY FOR PERFED COLON CANCER, A/O X4, VSS, TOLERATING PO, PASSING FLATS, VOIDING WELL, PAIN WELL CONTROLLED PER EMAR. PLAN TO DC TODAY W/ HOME HEALTH. CALL LIGHT IN REACH, WILL CONTINUE TO MONITOR AND REPORT TO ONCOMING DAY RN.
--- NOTE | 2020-09-03 08:50 | NUR ---
dr holden by to see pt meds given pt asked if she gets to go home told pt that dr ram might need to see her first before she goes
--- NOTE | 2020-09-03 12:15 | NUR ---
dr bill by to see pt
[2020-09-03] MEDS ORDERED: MORP30 PO (12:23)
[2020-09-03] MEDS ORDERED: HYDCHL25 PO (12:28)
[2020-09-03] MEDS ORDERED: METO25ER PO (12:29)
[2020-09-03] MEDS ORDERED: PROBIOTIC1 EA13 PO (12:30)
[2020-09-03] MEDS ORDERED: POTA10T PO (12:30)
--- NOTE | 2020-09-03 13:39 | NUR ---
discharge instructions reviewed with pt verbalized rx given also called rx to [facility] message left also faxed dr ram by to see pt changed dressing
--- NOTE | 2020-09-03 14:50 | NUR ---
wc escort to car with her daughter pt had a question
== END 2020-09-03 14:50 | disposition home health service (06) | DRG 853 ==
LOC: ER 14:22 → ICUW 22:48 → ICUE 22:48 → SURS 08-27 11:55 → ICUE 08-28 05:41 → PCU 08-28 16:00 → SURS 08-31 15:01
PROVIDERS: Emergency Medicine; Internal Medicine; Physician Assistant; Surgery; ADMIT Internal Medicine
PROC: 0DTF0ZZ Resection of Right Large Intestine, Open Approach (ICD-10-PCS; principal; 2020-08-27)
PROC: 5A09357 Assistance with Respiratory Ventilation, Less than 24 Consecutive Hours, Continuous Positive Airway Pressure (ICD-10-PCS; 2020-09-01)
DX: A41.9 Sepsis, unspecified organism (principal); R65.21 Severe sepsis with septic shock; C19 Malignant neoplasm of rectosigmoid junction; F11.20 Opioid dependence, uncomplicated; C78.7 Secondary malignant neoplasm of liver and intrahepatic bile duct; G89.4 Chronic pain syndrome; Z87.891 Personal history of nicotine dependence; Z20.822 Contact with and (suspected) exposure to COVID-19; I10 Essential (primary) hypertension; E83.39 Other disorders of phosphorus metabolism; E87.6 Hypokalemia; E83.30 Disorder of phosphorus metabolism, unspecified
CPT/HCPCS: 0241U; 36415; 36430; 71045; 74177; 80048; 80053; 80069; 81001; 82947; 83605; 83690; 85014; 85018; 85025; 85027; 86850; 86900; 86901; 86923; 87040; 87086; 88309; 94660; 94762; 96361; 96365-59; 96375; 97110; 97116; 97161; 97165; 97530; 97535; 99285-25; A9270; C1751; J1100; J1170; J1650; J1885; J1940; J2370; J2405; J2543; J2704; J2710; J3010; J7030; J7040; J7120; P9016; Q9967

== ENCOUNTER 2020-12-31 12:20 | Emergency (ER) | payer MEDICARE, OTHER ==
[~2020-12-31] VITALS: Ht 162.6 cm; Wt 72.1 kg
[~2020-12-31 12:20] MED LIST changes: +AMLO10 PO; +HYDCHL25 PO; +METO25ER PO; +POTA10T PO; +PROBIOTIC1 EA13 PO
[2020-12-31] MEDS ORDERED: HYDR1TAB94 PO (14:20)
== END 2020-12-31 15:12 | disposition home or self-care (01) ==
LOC: ER 12:20
DX: S41.111A Laceration without foreign body of right upper arm, initial encounter (principal); S16.1XXA Strain of muscle, fascia and tendon at neck level, initial encounter; S20.211A Contusion of right front wall of thorax, initial encounter; I10 Essential (primary) hypertension; K21.9 Gastro-esophageal reflux disease without esophagitis; Z88.5 Allergy status to narcotic agent; Z88.8 Allergy status to other drugs, medicaments and biological substances; V49.40XA Driver injured in collision with unspecified motor vehicles in traffic accident, initial encounter; Y92.410 Unspecified street and highway as the place of occurrence of the external cause
CPT/HCPCS: 71045; 72040; 99284-25; A9270

== ENCOUNTER 2021-01-01 18:50 | Emergency (ER) | payer MEDICARE, OTHER ==
[~2021-01-01] VITALS: Ht 157.5 cm; Wt 75.3 kg
[~2021-01-01 18:50] MED LIST changes: +HYDR1TAB94 PO
== END 2021-01-01 21:36 | disposition home or self-care (01) ==
LOC: ER 18:50
DX: S22.41XA Multiple fractures of ribs, right side, initial encounter for closed fracture (principal); K21.9 Gastro-esophageal reflux disease without esophagitis; I10 Essential (primary) hypertension; Z88.5 Allergy status to narcotic agent; Z88.8 Allergy status to other drugs, medicaments and biological substances; Z79.899 Other long term (current) drug therapy; V89.2XXA Person injured in unspecified motor-vehicle accident, traffic, initial encounter; Y92.410 Unspecified street and highway as the place of occurrence of the external cause
CPT/HCPCS: 71250; 99284-25

== ENCOUNTER 2021-07-24 15:46 | Inpatient (IN) | payer MEDICARE ==
[~2021-07-24] VITALS: Ht 160 cm; Wt 64.7 kg
[~2021-07-24 15:46] MED LIST changes: -METO25ER PO; -POTA10T PO; -Prilosec Otc20 MG PO
[2021-07-24 16:49] LABS: BASOPHILS ABSOLUTE AUTO 0.05 K/mm3 (0.00-0.23); BASOPHILS PERCENT AUTO 0 % (0-2); EOSINOPHILS ABSOLUTE AUTO 0.06 K/mm3 (0.00-0.68); EOSINOPHILS PERCENT AUTO 0 % (0-6); Hematocrit 38.1 % (33.0-51.0); Hemoglobin 11.8 g/dL (11.5-16.0); IMMATURE GRAN ABSOLUTE AUTO 0.14 K/mm3 (0.00-0.10); IMMATURE GRAN PERCENT AUTO 1 % (0-1); LYMPHOCYTES ABSOLUTE AUTO 2.21 K/mm3 (0.84-5.20); LYMPHOCYTES PERCENT AUTO 13 % (21-46); MONOCYTES ABSOLUTE AUTO 1.31 K/mm3 (0.16-1.47); MONOCYTES PERCENT AUTO 8 % (4-13); Mean Corpuscular HGB 24.5 pg (26.0-34.0); Mean Corpuscular Volume 79 fL (80-100); Mean Platelet Volume 10.4 fL (9.1-12.4); NEUTROPHILS ABSOLUTE AUTO 13.71 K/mm3 (1.96-9.15); NEUTROPHILS PERCENT AUTO 79 % (41-73); Platelet Count 251 K/mm3 (150-400); RDW Coefficient Variation 15.5 % (11.7-14.2); RDW Standard Deviation 44.3 fL (35.1-46.3); Red Blood Cell Count 4.81 M/mm3 (3.80-5.20); White Blood Cell Count 17.48 K/mm3 (4.00-11.30)
[2021-07-24 17:27] LABS: Troponin I <0.015 ng/mL (0.000-0.040)
[2021-07-24 17:28] LABS: Alanine Aminotransfer (ALT/SGP 10 U/L (12-78); Albumin, Blood 2.3 g/dL (3.4-5.0); Albumin/Globulin Ratio 0.5 (0.8-1.8); Alk Phos 150 U/L (50-136); Anion Gap 7 mmol/L (6-16); Aspartate Aminotrans (AST/SGOT 23 U/L (12-37); Bilirubin, Total 0.5 mg/dL (0.1-1.0); Blood Urea Nitrogen 12 mg/dL (8-24); Bun/Creatinine Ratio 20.1 (12.0-20.0); CO2, Blood 28 mmol/L (21-32); Calcium, Blood 8.8 mg/dL (8.5-10.1); Chloride, Blood 98 mmol/L (98-108); Globulin, Blood 5.1 g/dL (2.2-4.0); Glomerular Filtration Rate >60 (60-); Glucose, Blood 118 mg/dL (70-99); Potassium, Blood 3.6 mmol/L (3.5-5.5); Sodium, Blood 133 mmol/L (136-145); Total Protein, Blood 7.4 g/dL (6.4-8.2)
[2021-07-24 18:33] LABS: Source, Urine Clean Catch
[2021-07-24 18:37] LABS: Appearance, Urine Hazy (Clear); Bilirubin, Urine Neg (Neg); Blood, Urine 1+ (Neg); Color, Urine Yellow (P-Yellow); Glucose Qualitative, Urine Neg (Neg); Ketones, Urine Neg (Neg); Leukocyte Esterase, Urine 3+ (Neg); Nitrite, Urine Neg (Neg); Protein, Urine 2+ (Neg); Urobilinogen, Urine 1+ (Normal)
[2021-07-24 19:06] LABS: Bacteria Few /hpf; Mucus Light (0-Heavy); Red Blood Cells, Urine 0-2 /hpf (0-2); Squamous Epithelial Cells Mod /hpf (Few); Transitional Epithelial Cells Rare /hpf (0-Rare)
[2021-07-24 19:24] LABS: Source, Urine Catheter
[2021-07-24 20:10] LABS: Appearance, Urine Hazy (Clear); Bilirubin, Urine Neg (Neg); Blood, Urine Neg (Neg); Color, Urine Yellow (P-Yellow); Glucose Qualitative, Urine Neg (Neg); Ketones, Urine Neg (Neg); Leukocyte Esterase, Urine Neg (Neg); Nitrite, Urine Neg (Neg); Protein, Urine Neg (Neg); Urobilinogen, Urine NORM (Normal)
[2021-07-24 20:27] LABS: Bacteria Not Seen /hpf; Red Blood Cells, Urine Not Seen /hpf (0-2); Squamous Epithelial Cells Not Seen /hpf (Few); White Blood Cells, Urine Not Seen /hpf (0-5)
[2021-07-24] MEDS ORDERED: HYDR1TAB94 PO (21:02)
[2021-07-25 00:02] LABS: Influenza A, PCR NEGATIVE (NEGATIVE); Influenza B, PCR NEGATIVE (NEGATIVE); Resp Syncytial Virus, PCR NEGATIVE (NEGATIVE); SARS-Cov-2 (COVID-19) PCR, MMC NEGATIVE (NEGATIVE)
--- NOTE | 2021-07-25 00:27 | NUR ---
ADMIT NOTE HANDOFF RECEIVED FROM CFO AYO. PT ARRIVED TO FLOOR VIA GURNEY. PERSONAL POSSESSIONS WITH PT. PT ORIENTED TO UNIT. CALL BUTTON WITHIN REACH
--- NOTE | 2021-07-25 04:05 | NUR ---
SHIFT SUMMARY ADMITTED FROM ER THIS SHIFT FOR HYPOXIA. LIMITED CODE: NO CPR. PLAN IS FOR A CT - PE STUDY TODAY. SHE HAS COLON CANCER W/METS TO LIVER, LYMPH NODES. SHE HAS A MEDIPORT IN RT CHEST WALL. LAST CHEMO WAS 1 WEEK AGO. SHE STATES SHE HAS RIB PAIN, SHE DENIES FALLING. SHE LIVES WITH HER DAUGHTER AT HOME.
[2021-07-25 04:59] LABS: BASOPHILS ABSOLUTE AUTO 0.04 K/mm3 (0.00-0.23); BASOPHILS PERCENT AUTO 0 % (0-2); EOSINOPHILS PERCENT AUTO 1 % (0-6); Hematocrit 34.9 % (33.0-51.0); Hemoglobin 10.8 g/dL (11.5-16.0); IMMATURE GRAN ABSOLUTE AUTO 0.16 K/mm3 (0.00-0.10); IMMATURE GRAN PERCENT AUTO 1 % (0-1); LYMPHOCYTES ABSOLUTE AUTO 2.36 K/mm3 (0.84-5.20); LYMPHOCYTES PERCENT AUTO 15 % (21-46); MONOCYTES ABSOLUTE AUTO 1.29 K/mm3 (0.16-1.47); MONOCYTES PERCENT AUTO 8 % (4-13); Mean Corpuscular HGB 24.6 pg (26.0-34.0); Mean Corpuscular HGB Conc 30.9 g/dL (31.5-36.5); Mean Corpuscular Volume 80 fL (80-100); Mean Platelet Volume 10.6 fL (9.1-12.4); NEUTROPHILS ABSOLUTE AUTO 12.08 K/mm3 (1.96-9.15); NEUTROPHILS PERCENT AUTO 76 % (41-73); Platelet Count 200 K/mm3 (150-400); RDW Coefficient Variation 15.5 % (11.7-14.2); RDW Standard Deviation 44.3 fL (35.1-46.3); Red Blood Cell Count 4.39 M/mm3 (3.80-5.20); White Blood Cell Count 16.03 K/mm3 (4.00-11.30)
[2021-07-25 05:38] LABS: Alanine Aminotransfer (ALT/SGP 14 U/L (12-78); Albumin, Blood 2.1 g/dL (3.4-5.0); Albumin/Globulin Ratio 0.5 (0.8-1.8); Alk Phos 142 U/L (50-136); Anion Gap 8 mmol/L (6-16); Aspartate Aminotrans (AST/SGOT 26 U/L (12-37); Bilirubin, Total 0.4 mg/dL (0.1-1.0); Blood Urea Nitrogen 9 mg/dL (8-24); Bun/Creatinine Ratio 16.6 (12.0-20.0); CO2, Blood 28 mmol/L (21-32); Calcium, Blood 8.1 mg/dL (8.5-10.1); Chloride, Blood 99 mmol/L (98-108); Creatinine, Blood 0.54 mg/dL (0.40-1.00); Glomerular Filtration Rate >60 (60-); Glucose, Blood 122 mg/dL (70-99); Potassium, Blood 3.7 mmol/L (3.5-5.5); Sodium, Blood 135 mmol/L (136-145); Total Protein, Blood 6.1 g/dL (6.4-8.2)
--- NOTE | 2021-07-25 17:45 | NUR ---
SHIFT SUMMARY: NO ACUTE EVENTS. C/O 5/10 GENERALIZED PAIN WITH SOME EMPHASIS ON R ABD AND FLANK; MEDICATED WITH MORPHINE SR AND IR PER EMAR WITH ADEQUATE RELIEF. HAD CT PE STUDY. DIET CHANGED TO [facility] SOFT/GROUND MEAT PT HAS POOR DENTITION. OXYGEN TITRATED DOWN TO 2 L/MIN NC WITH OXIMETRY SHOWING 92-95%. DENIES FIERRO AND SOB. EDUCATED ABOUT INCENTIVE SPIROMETER AND TAUGHT TO USE, NEEDS ENCOURAGEMENT AND REINFORCEMENT. DAUGHTER VISITED FOR A SHORT TIME THIS AFTERNOON.
--- NOTE | 2021-07-26 04:35 | NUR ---
SHIFT SUMMARY ADMITTED FOR HYPOXIA. LIMITED CODE: NO CPR. SHE HAS COLORECTAL CANCER W/METS TO LIVER, PELVIS, LYMPH NODES. IMAGING NOTED ATELECTASIS AND POSSIBLE PNEUMONIA. LAST CHEMO WAS JUST OVER A WEEK AGO. MEDICATED FOR PAIN THIS SHIFT.
[2021-07-26 04:46] LABS: BASOPHILS ABSOLUTE AUTO 0.04 K/mm3 (0.00-0.23); BASOPHILS PERCENT AUTO 0 % (0-2); EOSINOPHILS ABSOLUTE AUTO 0.06 K/mm3 (0.00-0.68); EOSINOPHILS PERCENT AUTO 0 % (0-6); Hemoglobin 11.7 g/dL (11.5-16.0); IMMATURE GRAN ABSOLUTE AUTO 0.32 K/mm3 (0.00-0.10); IMMATURE GRAN PERCENT AUTO 2 % (0-1); LYMPHOCYTES PERCENT AUTO 4 % (21-46); MONOCYTES ABSOLUTE AUTO 0.71 K/mm3 (0.16-1.47); MONOCYTES PERCENT AUTO 4 % (4-13); Mean Corpuscular HGB 24.3 pg (26.0-34.0); Mean Corpuscular HGB Conc 31.6 g/dL (31.5-36.5); Mean Corpuscular Volume 77 fL (80-100); Mean Platelet Volume 10.2 fL (9.1-12.4); NEUTROPHILS ABSOLUTE AUTO 16.14 K/mm3 (1.96-9.15); NEUTROPHILS PERCENT AUTO 89 % (41-73); Platelet Count 242 K/mm3 (150-400); RDW Coefficient Variation 15.4 % (11.7-14.2); RDW Standard Deviation 42.3 fL (35.1-46.3); Red Blood Cell Count 4.82 M/mm3 (3.80-5.20); White Blood Cell Count 18.07 K/mm3 (4.00-11.30)
[2021-07-26 05:47] LABS: Anion Gap 9 mmol/L (6-16); Blood Urea Nitrogen 8 mg/dL (8-24); Bun/Creatinine Ratio 15.3 (12.0-20.0); CO2, Blood 28 mmol/L (21-32); Calcium, Blood 8.5 mg/dL (8.5-10.1); Chloride, Blood 96 mmol/L (98-108); Creatinine, Blood 0.52 mg/dL (0.40-1.00); Glomerular Filtration Rate >60 (60-); Glucose, Blood 117 mg/dL (70-99); Potassium, Blood 3.6 mmol/L (3.5-5.5); Sodium, Blood 133 mmol/L (136-145)
--- NOTE | 2021-07-26 19:18 | NUR ---
SHIFT SUMMARY: C/O 03/24 R ABDOMEN/FLANK PAIN THIS AFTERNOON; MORPHINE IR INCREASED FROM 15 MG TO 30 MG [id number]. THIS DOSE GIVEN; PT WAS QUITE SOMNOLENT THIS AFTERNOON, UNABLE TO PARTICIPATE IN CARE, REFUSED BATH AND ORAL CARE. HAD ONE EPISODE OF NAUSEA, MEDICATED WITH RELIEF. ON O2 @ 2 L/MIN NC WITH SATS 92-95%, ON CONTINUOUS OXIMETRY. TOLERATING PO INTAKE. DAUGHTER VISITED TODAY.
[2021-07-27 06:05] LABS: BASOPHILS ABSOLUTE AUTO 0.03 K/mm3 (0.00-0.23); BASOPHILS PERCENT AUTO 0 % (0-2); EOSINOPHILS ABSOLUTE AUTO 0.14 K/mm3 (0.00-0.68); EOSINOPHILS PERCENT AUTO 1 % (0-6); Hematocrit 39.4 % (33.0-51.0); IMMATURE GRAN ABSOLUTE AUTO 0.13 K/mm3 (0.00-0.10); IMMATURE GRAN PERCENT AUTO 1 % (0-1); LYMPHOCYTES ABSOLUTE AUTO 1.03 K/mm3 (0.84-5.20); LYMPHOCYTES PERCENT AUTO 6 % (21-46); MONOCYTES ABSOLUTE AUTO 0.82 K/mm3 (0.16-1.47); MONOCYTES PERCENT AUTO 5 % (4-13); Mean Corpuscular HGB 24.1 pg (26.0-34.0); Mean Corpuscular HGB Conc 30.5 g/dL (31.5-36.5); Mean Corpuscular Volume 79 fL (80-100); Mean Platelet Volume 10.4 fL (9.1-12.4); NEUTROPHILS ABSOLUTE AUTO 14.98 K/mm3 (1.96-9.15); NEUTROPHILS PERCENT AUTO 87 % (41-73); Platelet Count 278 K/mm3 (150-400); RDW Coefficient Variation 15.8 % (11.7-14.2); RDW Standard Deviation 45.1 fL (35.1-46.3); Red Blood Cell Count 4.97 M/mm3 (3.80-5.20); White Blood Cell Count 17.13 K/mm3 (4.00-11.30)
[2021-07-27 06:34] LABS: Bun/Creatinine Ratio 10.7 (12.0-20.0); Calcium, Blood 8.5 mg/dL (8.5-10.1); Creatinine, Blood 1.78 mg/dL (0.40-1.00); Potassium, Blood 4.1 mmol/L (3.5-5.5)
--- NOTE | 2021-07-27 07:32 | NUR ---
PT with metastatic cancer has liver mass pain well controlled by oral ms contin 30 mg BID & PRN MS IR 30 mg po with 1 admin given with helpful effect. Oxygen 2 l nc to keep sat greater than 90%. Up amb to BR with 1 SBA. Gen weakness.
--- NOTE | 2021-07-27 15:51 | NUR ---
Patient is resting upon my arrival and easily awakens at the sound of her name. She struggles to comprehend and speak at any length. Patient is known to me from her 's hospitalization and several yrs ago. I am familiar with patient's belief system and so I provide prayer. Patient is very appreciative of the prayer and asks if I could come back tomorrow and pray again. I will make every effort to do so.
--- NOTE | 2021-07-27 16:40 | NUR ---
PT IS A/OX3, PLEASANT AND COOPERATIVE. THE PT HAS BEEN VERY SLEEPY T/O THE DAY. PT THIS AM REPORTED PAIN WITH COUGH SO THE MS CONTIN 15MG WAS GIVEN. NO OTHER PAIN MEDICATION GIVEN TODAY. O2 WAS INCREASED TO 4L/MIN VIA NC TO MAINTAIN SAT'S > 90% . PT'S BP IS STABLE HR IN THE 105 BPM ON AVERAGE T/O THE DAY, RESP 16 PT IS AFEBRILE. PT RECIEVING NS AT 125ML/HR. CONSULTED WITH THE [facility] MICROBIOLOGISTGABE POMPA. CALL LIGHT IN REACH, WILL CONTINUE TO MONITOR AND ASSESS FOR CHANGES
--- NOTE | 2021-07-27 20:01 | NUR ---
GDTR Cady Oneill calls wanting update on PT & PT has decreased loc from medications to control metastatic cancer pain. Most painful is liver area but also has bone pain. Has pulse oximetry & 91 to 93 % on 4 l NC. PT rouses to voice oks update to Granddtr but sleepy. NPO for unsafe swallow due to decreased LOC. Upper airway rhonci, diminished BS bilat. Has NS running at 125 ml HR . Will hold oral intake until able to swallow safely, discuss IV aletrnatives with . MISTY
[2021-07-28 04:48] LABS: BASOPHILS ABSOLUTE AUTO 0.03 K/mm3 (0.00-0.23); BASOPHILS PERCENT AUTO 0 % (0-2); EOSINOPHILS PERCENT AUTO 0 % (0-6); Hematocrit 37.4 % (33.0-51.0); Hemoglobin 11.3 g/dL (11.5-16.0); IMMATURE GRAN ABSOLUTE AUTO 0.17 K/mm3 (0.00-0.10); IMMATURE GRAN PERCENT AUTO 1 % (0-1); LYMPHOCYTES ABSOLUTE AUTO 0.69 K/mm3 (0.84-5.20); LYMPHOCYTES PERCENT AUTO 3 % (21-46); MONOCYTES ABSOLUTE AUTO 0.97 K/mm3 (0.16-1.47); MONOCYTES PERCENT AUTO 5 % (4-13); Mean Corpuscular HGB 24.7 pg (26.0-34.0); Mean Corpuscular HGB Conc 30.2 g/dL (31.5-36.5); Mean Corpuscular Volume 82 fL (80-100); Mean Platelet Volume 10.1 fL (9.1-12.4); NEUTROPHILS ABSOLUTE AUTO 18.81 K/mm3 (1.96-9.15); NEUTROPHILS PERCENT AUTO 91 % (41-73); Platelet Count 284 K/mm3 (150-400); RDW Coefficient Variation 15.7 % (11.7-14.2); RDW Standard Deviation 46.8 fL (35.1-46.3); Red Blood Cell Count 4.57 M/mm3 (3.80-5.20); White Blood Cell Count 20.67 K/mm3 (4.00-11.30)
--- NOTE | 2021-07-28 05:43 | NUR ---
PT continues with flucuating levels of hypoxia needing from 2 to 8 l oxygen to keep sats greater than 89%. Bioxx alarms intermittantly & requires titration. Occ nonprod cough with rhonchi, diminished lower lobes bilat, irregular resp pattern
[2021-07-28 06:04] LABS: Anion Gap 14 mmol/L (6-16); Blood Urea Nitrogen 27 mg/dL (8-24); Bun/Creatinine Ratio 8.2 (12.0-20.0); CO2, Blood 23 mmol/L (21-32); Calcium, Blood 8.4 mg/dL (8.5-10.1); Chloride, Blood 96 mmol/L (98-108); Creatinine, Blood 3.28 mg/dL (0.40-1.00); Glomerular Filtration Rate 14 (60-); Glucose, Blood 95 mg/dL (70-99); Phosphorus, Blood 7.7 mg/dL (2.5-4.9); Potassium, Blood 4.6 mmol/L (3.5-5.5); Sodium, Blood 133 mmol/L (136-145)
--- NOTE | 2021-07-28 11:07 | NUR ---
PALLIATIVE CONSULT completed this am. Pt has metastatic cancer and has been receiving treatment via Dr. Dos Santos. On the , pt was at her daughters house, complaining about pain on R side so severe that it limited her ability to take a deep breath. Pt's daughter Maddison called for an ambulance and pt was brought to [facility] ED, then admitted with Hypoxic Respiratory Failure. New CT of abdomen showed increased tumors and tumor growth, including lymph involvment. Ct revealed ribs were ok. Pt's usual Morphine ER tablet dose was increased to attempt to manage pt's pain, however upon further review, noted pt has not even been taking routine pain medication since 10:12am yesterday, and no prn given for breakthrough. After speaking to both pt's bedside nurse Lalo, and pt's daughter Maddison,it became apparent to me this was not somnolence related to medication. This patient appears to be transitioning. I did relay this to pt's daughter Maddison as well as offer my condolences, and also informed Dr. Marie's office, Charge Nurse Marla and Dr. Hernandez. Marla is agreeable to allow family to visit, and Dr. Hernandez believes comfort care orders are appropriate. However, pt's daughter requests a visit before placing the comfort care orders. She seems to be attempting to process the entire situation, along with pt's granddaughter Loulou. They should be here to see pt very soon. Pt had a bedbath this morning, and she remained unresponsive through the bath, even when her eyes were open, she didn't appear to be tracking. Also noted occasional agonal breathing. No s/s of pain present at this time. Yuliana Tan in Care Management is aware of the situation, and available to assist with d/c planning if pt's daughter does wish to take pt home to granddaughter's house. Apparently, there are some younger grandchildren who are below the age requirment to visit at the hospital at this time. However, unsure that pt is appropriate for transport, as she may be imminent. Awaiting daughter's arrival.
--- NOTE | 2021-07-28 13:25 | NUR ---
Case Conference: Pt's daughter and granddaughter at bedside. Pt does awaken occasionally during the visit. She will continue to receive antibiotics until discharge home with hospice. Both Maddison and Loulou, pt's daughter and granddaughter v/u regarding pt's poor prognosis, along with acute kidney injury, possible pneumonia, etc. They have elected comfort care for the patient for now, and return home with hospice as the ultimate goal. Dr. Hernandez agreeable to comfort care, verbal orders received.
[2021-07-28 13:47] LABS: Albumin/Globulin Ratio 0.4 (0.8-1.8); Bilirubin, Direct 0.1 mg/dL (0.0-0.3); Bilirubin, Indirect 0.3 mg/dL (0.1-0.7); Bilirubin, Total 0.4 mg/dL (0.1-1.0); Globulin, Blood 4.5 g/dL (2.2-4.0); Total Protein, Blood 6.5 g/dL (6.4-8.2)
--- NOTE | 2021-07-28 14:25 | NUR ---
Spiritual care visit conducted. Daughter, Maddison and Granddaughter, Loulou are bedside and tearful. They are immediately encouraged to learn of my conversation that I had with the patient the day prior. I tell them of her concern for them, her readiness to "be with Jorge" and that she stated that she was not in any physical pain. I also share with them about her strong gloria and her desire to have me say a prayer. I also provide therapeutic listening as they discuss patient's medical history, and the loss of so many family and friends in the last couple of yrs. I conduct a life review of patient and her connections to each of them and provide grief/emotional support. Family respond well and show signs of being comforted. They voice appreciation for the visit. I will remain available until patient goes to Loulou's house on hospice (possibly tomorrow).
--- NOTE | 2021-07-28 16:36 | NUR ---
PT IS ALERT/LETHARGIC. ORIENTED TO SELF, PLACE AND FAMILY. PT IS ON 4L/MIN O2 AT THIS TIME O2 SAT'S > 90%. FOR MOST OF THE DAY THE PT WAS VERY LETHARGIC ONLY RESPONSIVE IF STIMULATED WOULD OPEN EYES AND FALL TO SLEEP. PALLIATIVE CARE CONSULTED AND THE FAMILY WAS NOTIFED ON PT DECLINING CONDITION. FAMILY CAME AND A DECISION TO PERSUE COMFORT CARE WAS MADE. THE PT THIS AFTERNOON BECAME MORE RESPONSIVE TO FAMILY AND AT ONE POINT PER FAMILY SAID THAT SHE WAS NOT READY TO BE PLACED ON COMFORT CARE. AT THIS TIME THE FAMILY AND THE PT ARE WAITING TO SPEAK WITH DR. GOODE TO DISCUSE PROGNOSIS. THE PT WAS MEDICATED AT THE FAMILY'S REQUEST FOR PAIN X1 SO FAR THIS AFTERNOON. PT'S FAMILY CONCERNED THAT THE PT MAY BE EXPERIANCING WITHDRAWLS FROM PAIN MEDICATION THAT WAS HELD DUE TO THE PTS AMS. FAMILY IS AT THE BEDSIDE AT THIS TIME, CALL LIGHT IN REACH, WILL CONTINUE TO MONITOR AND ASSESS FOR CHANGES.
--- NOTE | 2021-07-28 16:54 | NUR ---
PT MEDICATED FOR DISCOMFORT PER THE FAMILY REQUEST.PT APPEARS COMFORTABLE
--- NOTE | 2021-07-28 17:57 | NUR ---
KADE PHONE [phone] She is pt's granddaughter. Pt to move to Kade's house upon discharge. Pt's daughter Maddison is waiting for Dr. Dos Santos to visit today, she is unsure if she wants to continue with comfort care for the pt at this time. Pt did awaken when family arrived today, but has declined any sips of water, or food of any kind intermittently. She continues to be mostly incoherant.
--- NOTE | 2021-07-28 21:15 | NUR ---
PT alert nonverbal eyes open, denies pain. oral suction with sm amt thick white secretions. Oxygen 5 l nc bioxx. Room air sat 77%. Family at bedside, supportive
--- NOTE | 2021-07-29 02:11 | NUR ---
DTRS SO Luis here at bedside & supportive. PT medicated to prevemnt Opioid WD with helpful effect with 5 mg IV morphine. Turned repositioned Q 2 hrs.
--- NOTE | 2021-07-29 06:14 | NUR ---
PT put on comfort care yesterday & resting quietly with family rooming in intermittantly speaks but not fully alert enough to swallow. Medicated for S/sx pain x 1 with 5 mg IV morphine with good effect 5 l nc for dyspnea.
--- NOTE | 2021-07-29 10:49 | NUR ---
PT MORE AWAKE THIS AM. A/X3, EYES OPREN VERBAL, O2 2 4L/MIN. THE PT SEEMS TO BE BREATHING EASILY. PT IS SOMEWHAT RESTLESS IN BED. FAMILY AT THE BEDSIDE WILL CONTINUE TO MONITOR FOR CHANGES
--- NOTE | 2021-07-29 10:51 | NUR ---
PT RESTLESS MEDICATED FOR PAIN WITH 5 MG IV MORPHINE, FAMILY AT THE BESIDE WILL CONTINUE TO MONITOR AND ASSESS FOR CHANGES
--- NOTE | 2021-07-29 11:54 | NUR ---
Pt's daughter Maddison called this am, request to rescind comfort care order, and tells me it's her understanding the patient is "getting better". I did visit pt this morning, and she was more alert than previous days. Dr. Hernandez has opted to continue with fluids and IV antibiotics, and continue to wait and see if patient mentation continues to improve. Dr. Dos Santos did see patient last night, and reports she is no longer a candidate for cancer treatment, and otherwise states he doesn't know for sure if the somnolence is related to [employer]ODUCE ASS[employer] metastasis, or something unrelated. Hospice referral cancelled for now at family's request, with the plan to discharge her home "in a few days when she is better, according to Maddison.
--- NOTE | 2021-07-29 13:20 | NUR ---
Spiritual care visit conducted. Patient is more alert today than yesterday. Luis, patient's daughter's boyfriend is bedside. Patient denies having any pain. She confirms that she is at peace with God and that she has no concerns, but is very appreciative of prayer. I gladly provide prayer. I will continue to remain available to patient and family.
--- NOTE | 2021-07-29 15:39 | NUR ---
PT TRANSFERED PT TRANSFERED BACK TO [facility] VIA GURNEY ON O2 @ 2L/MIN. REPORT CALLED TO IVÁN BERNAL AT [facility]. PT WAS ACCOMPANIED BY [employer] BELONGINGS RELEASED TO THE PT
--- NOTE | 2021-07-29 16:36 | NUR ---
PT APPEARS COMFORTABLE SLEEPING EASILY AROUSED
--- NOTE | 2021-07-29 16:37 | NUR ---
PT REPOSITIONED. ATTENDS CHANGED. PT ANSWERS QUESTIONS DENIES PAIN
--- NOTE | 2021-07-29 16:38 | NUR ---
PT MEDICATED FOR PAIN DUE TO RESTLESSNESS, FAMILY AT THE BEDSIDE. CALL LIGHT IN REACH. WILL CONTINUE TO MONITOR AND ASSESS FOR CHANGES
--- NOTE | 2021-07-29 18:05 | NUR ---
Spoke to pt's daughter Maddison this evening, after hearing she wants to cancel comfort care for patient. I read a portion of the last paragraph that Dr. Dos Santos wrote in his consultation last night. Maddison then states understanding that there will be no further chemotherapy treatment for the patient, as there had been significant tumor growth recently. I also explained that we are NOT taking pt off of antibiotics and fluids either, as Dr. Eden requests they continue for now. So, patient will remain on comfort care at this time.
[2021-07-29 18:41] LABS: Calcium, Blood 8.6 mg/dL (8.5-10.1); Creatinine, Blood 1.62 mg/dL (0.40-1.00); Potassium, Blood 4.2 mmol/L (3.5-5.5)
[2021-07-29] MEDS ORDERED: Deltasone 10 mg10 MG PO (20:07)
[2021-07-29] MEDS ORDERED: SERT100 PO (20:07)
[2021-07-29] MEDS ORDERED: Ondansetron Odt8 MG SL (20:13)
[2021-07-29] MEDS ORDERED: AMLO5 PO (20:14)
[2021-07-29] MEDS ORDERED: MS CONTIN30 M6 PO (20:16)
[2021-07-29] MEDS ORDERED: MORPHINE SULFAT15 M1 PO (20:17)
[2021-07-29] MEDS ORDERED: BRAFTOVI75 MG PO (20:19)
[2021-07-29] MEDS ORDERED: Prilosec Otc20 MG PO (20:19)
[2021-07-29] MEDS ORDERED: POTA10T PO (20:20)
[2021-07-29] MEDS ORDERED: METO25ER PO (20:20)
[2021-07-29] MEDS ORDERED: CYCL10 PO (20:20)
[2021-07-29] MEDS ORDERED: DEXA4 (20:24)
--- NOTE | 2021-07-30 03:50 | NUR ---
PATIENT REMAINS ALERT AND ABLE TO ANSWER BASIC QUESTIONS SUCH "ARE YOU IN PAIN". IT WAS APPARENT THE PATIENT WAS EXPERIENCING PAIN D/T HER CONSTANT RESTLESSNESS AND MOANING IN BED. WHEN ASKED ABOUT HAVING PAIN THE PATIENT WAS ABLE TO CONFIRM. PATIENT MEDICATED A COUPLE TIMES BEFORE APPEARING IN A STATE OF COMFORT. PATIENT IS ABLE REPOSITION HERSELF IN BED HOWEVER MY PACKAGE SEALER MACHINE AND I CHECK ON HER FREQUENTLY TO SEE IF WE CAN ASSIST HER IN GETTING COMFORTABLE. KERN CATH PLACED PER CC PROTOCOL TO ASSIST WITH MINIMIZING MOISTURE TO THE PATIENTS SKIN; KERN PATENT AND DRAINING TO GRAVITY. PATIENT CONTINUES ON IV ABX WITHOUT S/SX OF ADVERSE REACTIONS NOTED OR REPORTED. COMFORT CARE PROTOCOL IN PLACE. CALL LIGHT WITHIN REACH.
--- NOTE | 2021-07-30 14:30 | NUR ---
Pt's bedside RN reports the pt's granddaughter Loulou is at bedside is verbalizing concerns about her own ability to care for the patient at home, and other questions. I met with granddaughter and she struck up a similar converstation wiith me. She verbalized wondering if there were more she could have done, or more treatments they could had tried. I gently reminded her that the oncologist has been treating her for a very long time. She agrees, and says she does know, she just doesn't want to believe it. The plan upon d/c is still going to Loulou's house. Unsure when the move will happen, but for now Dr. Eden is continuing with gentle hydration and IV antibiotics.
--- NOTE | 2021-07-30 18:33 | NUR ---
COMFORT CARE SUMMARY PATIENT MEDICATED FOR PAIN X4. MEDICATED FOR ANXIETY X1. PATIENT HAD TWO VISITORS TODAY. WAS ABLE TO EAT HALF OF AN ICE CREAM AND DRINK A FEW SIPS OF WATER. PATIENT SLEPT MOST OF AFTERNOON. PATIENT RESTING COMFORTABLY.
--- NOTE | 2021-07-31 04:58 | NUR ---
PATIENT REMAINS ON COMFORT CARE AND HAS APPEARED COMFORTABLE ALL SHIFT WITHOUT THE NEED FOR MEDICATING. PATIENT HAS HAD A DECLINE SINCE MY LAST SHIFT WITH HER LAST NIGHT, SHE HAS NOT BEEN ALERT THIS SHIFT. SHE CONTINUES TO RECIEVE IV ABX SCHEDULED PER EMAR, HOWEVER ALL OTHER SCHEDULED MEDICATIONS HAVE BEEN DISCONTINUED. WILL CONTINUE TO PROVIDE CARE PER COMFORT CARE PROTOCOL. WILL CONTINUE TO CHECK ON PATIENT FREQUENTLY.
--- NOTE | 2021-07-31 12:16 | NUR ---
Spiritual care visit conducted. Patient is lying in bed and resting. Patient easily awakens and affirms that she remembers me. She also indicates that she feels God's presence with her and that she is deeply loved by her family. She shakes her head no when asked if she is experiencing any pain and again when asked if she had any fears or worries. She agrees to having a prayer said for her. I gladly provide a calming presence and prayer. Patient responds well and drifts back to sleep. I will continue to remain available to pateint and family.
--- NOTE | 2021-07-31 15:02 | NUR ---
Daughter called to relay that they have reached terms with hospice care and want her home by [place]. review of services availble for hospice. no preferance ok with who ever is available. jacquelyn had opening on tuesday packet sent.
--- NOTE | 2021-07-31 19:03 | NUR ---
SHIFT SUMMARY PT HAS BEEN RESTING COMFORTABLE MOST OF THE DAY ONLY NEEDING TO BE MEDICATED FOR PAIN 3 TIMES. SHE IS BECOMING UNRESPONSIVE TO QUESTIONS. TOLERATING IVS AND PAIN MEDICATIONS. SPOKE WITH FAMILY AND THEY ARE HOPEFUL TO DISCHARGE HER HOME ON HOSPICE TOMORROW. WILL CONTINUE TO MONITOR.
--- NOTE | 2021-08-01 06:22 | NUR ---
A/O TO SELF. IS ABLE TO FOLLOW SIMPLE COMMANDS. RESTLESS AND PAINFUL MOST OF SHIFT. SHE TOLERATES PO ROXINOL. IT MIGHT BE OKAY TO ADDRESS HER NPO STATUS IF SHE IS ABLE TO TOLERATE ORAL.
--- NOTE | 2021-08-01 16:54 | NUR ---
SHIFT SUMMARY PT IS STIL RESTING COMFORTABLE. SHE WAS ABLE TO EAT SOME LIQUIFIED LUNCH. SHE HAS BEEN MEDICATED FOR PAIN SEVERAL TIMES AND REPOSTITIONED FOR COMFORT. DAUGHTER IS AT BEDSIDE. WILL CONTINUE TO MONITOR.
--- NOTE | 2021-08-01 17:57 | NUR ---
review of pt symptoms saroj nursing plan is home with amador
--- NOTE | 2021-08-02 06:32 | NUR ---
PT IS A/O TO SELF. SHE IS CURRENTLY COMFORT CARE (MODIFIED). SHE IS STILL GETTING INTERMITTENT ABX. SHE HAS MULTIPLE MEDS FOR PAIN/ANXIETY/SLEEP BOTH IV AND PO. SHE HAS BEEN TOLERATING THE ORAL ROXANOL. SHE IS ON A FULL LIQUID DIET, BUT SEEMS TO LIKE NECTAR THICKS LIQUIDS.
--- NOTE | 2021-08-02 17:26 | NUR ---
SHIFT SUMMARY PT IS AO. PT MEDICATED X2 FOR PAIN PER EMAR. PT RESTING COMFORTABLY T/O SHIFT TODAY. PT HAD MULTIPLE LOOSE BM'S. PT'S DAUGHTER IN TO VISIT TODAY. APPETITE IS POOR. KERN CATHETER PATENT AND DRAINING. PLAN IS FOR DC TO [facility] WHEN HOSPICE BED IS DELIVERED. PT CURRENTLY ASLEEP IN BED, LOW POSITION, CALL LIGHT IN REACH.
--- NOTE | 2021-08-03 04:44 | NUR ---
PT IS MORE ORIENTED THIS SHIFT. SHE IS NOW ABLE TO HAVE SMALL CONVERSATIONS AND IS SHOWING INTEREST IN GETTING OOB. HER PAIN HAS BEEN MORE MANAGABLE. HER ABX WERE DC'D AND SHE DOES NOT HAVE A PIV. SHE IS TOLERATING FLUIDS WELL.
[2021-08-03] MEDS ORDERED: MORP20L SL (12:29)
[2021-08-03] MEDS ORDERED: ATROPINE SULFATE2 M5 SL (12:29)
[2021-08-03] MEDS ORDERED: PROM25 PO (12:30)
[2021-08-03] MEDS ORDERED: TRANSDERM-SCOP1 EAC8 TOP (12:30)
[2021-08-03] MEDS ORDERED: Ativan1 MG PO (12:30)
--- NOTE | 2021-08-03 14:00 | NUR ---
Pt's discharge home is on hold at this time. Received a call from Maddison, Clinical Coordinator of [facility], that pt not a candidate for hospice at this time. Awaiting more information.
--- NOTE | 2021-08-03 15:11 | NUR ---
Discussed agency options, and family chose [facility]. Street has accepted the patient, and verbalize understanding regarding pt's altered mental status. Pt is currently oriented to self, with intermittent moments of clarity. She will discharge tomorrow, with plan for hospice admit at 1130am, if transportation can be arranged for tomorrow morning. Pt v/u to [employer] that she does understand what hospice is, and is agreeable to the service. As noted by bedside RN Svetlana, pt does forget most conversations, and will ask the same questions often, or have a differing opinion on a subject several times in a day.
--- NOTE | 2021-08-03 15:34 | NUR ---
Spiritual care visit conducted. Patient is alert and oriented. Pt tells me about the recovery of clarity she has had and her appreciation for the hospital staff for their wonderful care. She tells me that she said, "No" to a hospice election but then after I explained it to her she seemed amicable to the idea. Patient then talks about family and how much love she has for them and about she is ready to go home to [facility] but feels it is not quite her time. She has some more work to do. I provide therapeutic listening, companionship and prayer. Patient responds well and shows signs of increased peace.
--- NOTE | 2021-08-03 18:33 | NUR ---
COMFORT CARE SUMMARY PATIENT VERY ALERT TODAY. MOMENTS OF CLARITY TODAY. PLAN IS STILL TO GO HOME WITH HOSPICE CARE. TRANSPORT HAS BEEN ARRANGED FOR 1000 TOMORROW, 08/04. PATIENT MEDICATED X1 FOR PAIN AND X1 FOR ANXIETY. PATIENT EATING BETTER TODAY.
--- NOTE | 2021-08-04 04:55 | NUR ---
SHIFT SUMMARY ADMITTED FOR HYPOXIA. DNR CODE. PLAN IS FOR DC HOME W/HOSPICE. SHE HAS COLON CANCER W/METS TO LIVER. HER GRANDDAUGHTER WILL CARE FOR HER. KERN CATHETER IS IN PLACE. DR. GOODE IS ONCOLOGY CONSULT. Q2 HR COMFORT CARE ASSESSMENTS.
--- NOTE | 2021-08-04 10:53 | NUR ---
KERN CARE PROVIDED. Q2 ASSESSMENTS. NO SIGNS OF ACUTE CHANGES. NO REPORTED PAIN @1027 PATIENT WAS DISCHARGED TO HOME/HOSPICE
== END 2021-08-04 10:27 | disposition hospice, home (50) | DRG 871 ==
LOC: ER 15:46 → MEDS 23:39
PROVIDERS: Internal Medicine; Internal Medicine Hematology & Oncology; Physician Assistant; Student in an Organized Health Care Education/Training Program; ADMIT Internal Medicine
DX: A41.9 Sepsis, unspecified organism (principal); J18.9 Pneumonia, unspecified organism; G92.8 Other toxic encephalopathy; J96.01 Acute respiratory failure with hypoxia; N17.9 Acute kidney failure, unspecified; C78.7 Secondary malignant neoplasm of liver and intrahepatic bile duct; C19 Malignant neoplasm of rectosigmoid junction; C18.2 Malignant neoplasm of ascending colon; Z20.822 Contact with and (suspected) exposure to COVID-19; G47.00 Insomnia, unspecified; Z51.5 Encounter for palliative care; F32.A Depression, unspecified; K21.9 Gastro-esophageal reflux disease without esophagitis; R40.0 Somnolence; B96.89 Other specified bacterial agents as the cause of diseases classified elsewhere; N76.0 Acute vaginitis; Z88.5 Allergy status to narcotic agent; Z88.8 Allergy status to other drugs, medicaments and biological substances; M19.90 Unspecified osteoarthritis, unspecified site; G89.4 Chronic pain syndrome; Z90.49 Acquired absence of other specified parts of digestive tract; Z98.890 Other specified postprocedural states; Z87.891 Personal history of nicotine dependence; Z79.899 Other long term (current) drug therapy; I10 Essential (primary) hypertension; E86.0 Dehydration
CPT/HCPCS: 0241U; 36415; 51701; 51702; 71101; 71260; 74177; 80048; 80053; 80069; 80076; 81001; 82140; 83605; 83690; 83880; 84145; 84484; 85025; 87086; 93005; 93010; 94760; 94762; 96374; 99285-25; A9270; J0696; J1650; J2060; J2270; J2405; J7030; J7050; Q9967